=== PATIENT | male | born 1965 | race Caucasian/White ===

== ENCOUNTER 2016-08-01 15:13 | Emergency (ER) | payer BC, OTHER ==
[2016-08-01 15:27] VITALS: BP 142/86
--- NOTE | 2016-08-01 15:39 | EDM.PDOC ---
ED HPI GENERAL MEDICAL PROBLEM - General Chief Complaint: Lower Extremity Injury/Pain Stated Complaint: SOMETHING IN FOOT Time Seen by Provider: 08/01/16 15:38 Source of Information: Reports: Patient History Limitations: Reports: No Limitations - History of Present Illness INITIAL COMMENTS - FREE TEXT/NARRATIVE: HISTORY AND PHYSICAL: History of present illness: [Comes to the emergency room for evaluation of right foot pain. Complains of sensation of foreign body to his lateral mid foot/heel area on the plantar surface of his right foot. He states that several days ago he was walking barefoot in his house when he believes he stepped on a piece of metal. He was evaluated at the urgent care clinic on July 31. A small piece of metal was extracted from his foot at that time. He does not feel that all of the foreign body was removed if he continues to have pain with palpation and with walking. Tetanus is up-to-date. He has not had fever or chills, no nausea vomiting or abdominal pain. No chest pain shortness of breath or difficulty breathing. He has no other complaints or concerns at this time. 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 Past medical history significant for hypertension. Denies history of heart attack stroke and diabetes.] Review of systems: As per history of present illness and below otherwise all systems reviewed and negative. Past medical history: As per history of present illness and as reviewed below otherwise noncontributory. Surgical history: As per history of present illness and as reviewed below otherwise noncontributory. Social history: No reported history of drug or alcohol abuse. Family history: As per history of present illness and as reviewed below otherwise noncontributory. Physical exam: HEENT: Atraumatic, normocephalic. Oral mucous membranes are moist and pink. Extremities: Dime-sized area of swelling, and TTP to R lateral mid foot.purulent discharge is beneath the skin, with a darkened central area. Could be a foreign body or a collection of old blood. Her major foot is unremarkable for other lesions wounds or sores. Neurovascular unremarkable. Sensation is intact. Neuro: Awake, alert, oriented. Motor and sensory unremarkable throughout. Exam nonfocal. Diagnostics: [X-ray right foot] Impression: [foreign body R foot] Plan: [No foreign body is identified on x-ray. Patient would like to have the area excised with exploration for a foreign body. The area is anesthetized with 2 cc of 1% lidocaine without epinephrine. An 11 blade is used to excise the area. Small amount of. The drainage is expressed. No foreign body identified. Will start Cephalexin 500 mg #30 sig one by mouth 3 times a day zero refills recommended Epsom salt soaks 2-3 times daily until resolved. Tylenol or ibuprofen for discomfort of his questions are answered and concerns are addressed.] Definitive disposition and diagnosis as appropriate pending reevaluation and review of above. Right Feet Pain Score (Numeric/FACES): 9 - Related Data Allergies Allergy/AdvReac Type Severity Reaction Status Date / Time No Known Allergies Allergy Verified 08/01/16 15:27 Home Meds: Home Meds Famotidine [Pepcid AC] 20 mg PO BID 08/25/13 [History] Lisinopril 20 mg PO DAILY #30 tablet 08/26/13 [Rx] Hydrochlorothiazide 25 mg PO DAILY 06/22/14 [History] Albuterol Sulfate [Ventolin Hfa] 2 inh INH ASDIRECTED PRN 05/27/15 [History] Budesonide/Formoterol [Symbicort 160-4.5 MCG] 2 puff INH BID 05/27/15 [History] Past Medical History HEENT History: Reports: Impaired Vision Cardiovascular History: Reports: Hypertension Respiratory History: Reports: COPD - Infectious Disease History Infectious Disease History: Reports: Chicken Pox Other Infectious Disease History: Patient unsure of this history - Past Surgical History Musculoskeletal Surgical History: Reports: Shoulder Surgery Other Musculoskeletal Surgeries/Procedures:: right shoulder surgery Social & Family History - Family History Family Medical History: Noncontributory Cardiac: Reports: Hypertension, [place] OBGYN: Reports: Dermatologic: Reports: Psoriasis Oncologic: Reports: Other (See Below) Other Oncologic Family History: esophagus - Tobacco Use Smoking Status *Q: Never Smoker Years of Tobacco use: 15 Packs/Tins Daily: 1 Used Tobacco, but Quit: No Second Hand Smoke Exposure: No - Caffeine Use Caffeine Use: Reports: Soda Caffeine Use Comment: 1drink/day - Alcohol Use Days Per Week of Alcohol Use: 3 Number of Drinks Per Day: 3 Total Drinks Per Week: 9 - Recreational Drug Use Recreational Drug Use: No Review of Systems - Review of Systems Review Of Systems: ROS reveals no pertinent complaints other than HPI. Trauma Exam - Physical Exam Exam: See Below Course - Vital Signs Last Recorded V/S: Last Vital Signs Temp 97 F 08/01/16 15:22 Pulse 110 H 08/01/16 15:22 Resp 20 08/01/16 15:22 BP 142/86 H 08/01/16 15:22 Pulse Ox 95 08/01/16 15:22 - Orders/Labs/Meds Orders: Active Orders 24 hr Category Date Time Status Foot 2V Rt [CR] Stat Exams 08/01/16 16:19 Taken Meds: Medications Discontinued Medications Generic Name Dose Route Start Last Admin Trade Name Дмитрий PRN Reason Stop Dose Admin Lidocaine HCl 20 ml 08/01/16 17:03 08/01/16 17:35 Xylocaine 1% INJECT 08/01/16 17:04 20 ml ONETIME ONE Administration Departure - Departure Time of Disposition: 17:40 Disposition: Home, Self-Care 01 Condition: good Clinical Impression: Foreign body (FB) in soft tissue - Discharge Information Instructions: Sliver Removal, Care After Referrals: Jeet Carter MD [Primary Care Provider] - Forms: ED Department Discharge Additional Instructions: The following information is given to patients seen in the emergency department who are being discharged to home. This information is to outline your options for follow-up care. We provide all patients seen in our emergency department with a follow-up referral. The need for follow-up, as well as the timing and circumstances, are variable depending upon the specifics of your emergency department visit. If you don't have a primary care physician on staff, we will provide you with a referral. We always advise you to contact your personal physician following an emergency department visit to inform them of the circumstance of the visit and for follow-up with them and/or the need for any referrals to a consulting specialist. The emergency department will also refer you to a specialist when appropriate. This referral assures that you have the opportunity for follow-up care with a specialist. All of these measure are taken in an effort to provide you with optimal care, which includes your follow-up. Under all circumstances we always encourage you to contact your private physician who remains a resource for coordinating your care. When calling for follow-up care, please make the office aware that this follow-up is from your recent emergency room visit. If for any reason you are refused follow-up, please contact the [facility] emergency department at and asked to speak to the emergency department charge nurse. [facility] [address] [place] [id number] Followup with her local primary care provider at the clinic listed above in 48- 72 hours. Take antibiotics as prescribed Epsom salts soaks 2-3 times daily. Tylenol or ibuprofen as needed for discomfort. Return to ER as needed as discussed. - My Orders Last 24 Hours: My Active Orders 08/01/16 16:19 Foot 2V Rt [CR] Stat - Assessment/Plan Last 24 Hours: My Active Orders 08/01/16 16:19 Foot 2V Rt [CR] Stat
[2016-08-01] MEDS ORDERED: Lidocaine 1% 20 ML MDV INJECT ONE (17:03)
--- NOTE | 2016-08-02 19:33 | CR ---
EXAM DATE: 08/01/16 PATIENT'S AGE: 51 Patient: ANNA FERRER Facility: [place], [place] Site . Site : 1965 Study: XRay Extremity foot [id number]/11/2017 4:31:25 PM Ordering Physician: Doctor Manzano Final Report: INDICATION: Question foreign body in right mid foot along plantar surface. TECHNIQUE: Foot radiograph 2 views COMPARISON: None FINDINGS: Bones: Alignment is normal. No acute fractures or aggressive osseous lesions seen. Plantar calcaneal spurring. Joint spaces: The visualized hindfoot, midfoot, and forefoot joints are unremarkable in appearance. Soft tissues: Unremarkable. No radiopaque foreign bodies are noted. IMPRESSION: 1. No acute osseous injury. No plantar soft tissue foreign body identified. Dictated by Peter Carrasco MD @ 08/01/2016 4:42:03 PM Dictated by: Peter Carrasco MD @ 08/01/2016 16:42:09 (Electronic Signature) Report Signed by Proxy. DEDRICK
== END 2016-08-01 17:53 | disposition home or self-care (01) ==
LOC: MW.ED 15:13
PROC: 0J9Q0ZZ Drainage of Right Foot Subcutaneous Tissue and Fascia, Open Approach (ICD-10-PCS; principal; 2016-08-01)
DX: M79.5 Residual foreign body in soft tissue (principal); I10 Essential (primary) hypertension; J44.9 Chronic obstructive pulmonary disease, unspecified; F17.200 Nicotine dependence, unspecified, uncomplicated
CPT/HCPCS: 10060; 73620-26-RT; 73620-RT; 99283

== ENCOUNTER 2017-05-24 08:04 | Emergency (ER) | payer BC ==
--- NOTE | 2017-05-24 08:35 | EDM.PDOC ---
ED HPI GENERAL MEDICAL PROBLEM - General Chief Complaint: Lower Extremity Injury/Pain Stated Complaint: RIGHT KNEE PAIN Time Seen by Provider: 05/24/17 08:10 - History of Present Illness INITIAL COMMENTS - FREE TEXT/NARRATIVE: HISTORY AND PHYSICAL: History of present illness: The patient is a 51-year-old male with a history of hypertension who follows in our family practice clinic and presents with a ten-day history of right knee pain. The patient says that he had a slip and fall down 10 concrete stairs 10 days ago and is not sure if he impacted his right knee but he remembers hitting his left knee and twisting and flailing as he was falling. He did not pass out or black out and has no head neck or back pain and initially had some pain at the right knee but it seemed to get better. The patient says 2 days ago he was feeling great and was continuing to work throughout all of this. 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 He has not had any gross swelling or bruising and has no distal or proximal discomfort. He is able to walk but says that it is very uncomfortable and is using a friend's cane. He is taken some ibuprofen this morning but no pain meds yesterday. He has no other systemic complaints. Review of systems: As per history of present illness and below otherwise all systems reviewed and negative. Past medical history: As per history of present illness and as reviewed below otherwise noncontributory. Surgical history: As per history of present illness and as reviewed below otherwise noncontributory. Social history: No reported history of drug or alcohol abuse. Family history: As per history of present illness and as reviewed below otherwise noncontributory. Physical exam: Gen.: Well-developed overweight man who is nontoxic and age-related into the ED using a cane without assistance or difficulty. He has a slight limp. Vital signs are noted by me HEENT: Atraumatic, normocephalic, negative for conjunctival pallor or scleral icterus, mucous membranes moist, throat clear, neck supple, nontender, trachea midline. Lungs: Clear to auscultation, breath sounds equal bilaterally, chest nontender. Heart: S1S2, regular rate and rhythm no overt murmurs Abdomen: Soft, nondistended, nontender. NABS Pelvis: Stable nontender. No lateral hip tenderness on the right Genitourinary: Deferred. Rectal: Deferred. Extremities: Atraumatic appearing with full range of motion of all extremities. At the right knee there is no gross soft tissue swelling and there is a minimal joint effusion appreciated without ecchymosis. There are no palpable bony deformities and there is only mild tenderness to deep palpation just inferior to the mid patella along the track of the quadriceps tendon, there is some discomfort with extension of the leg, there is no distal tib-fib or ankle tenderness or deformities and no proximal thigh or hip tenderness or deformities , the legs are negative for cords or calf pain. Neurovascular unremarkable. Neuro: Awake, alert, oriented. Cranial nerves II through XII unremarkable. Cerebellum unremarkable. Motor and sensory unremarkable throughout. Exam nonfocal. Diagnostics: X-ray right knee Therapeutics: neoprene splint , offer crutches Impression: Right knee injury/pain Definitive disposition and diagnosis as appropriate pending reevaluation and review of above. Right Knee Pain Score (Numeric/FACES): 10 - Related Data Allergies Allergy/AdvReac Type Severity Reaction Status Date / Time No Known Allergies Allergy Verified 05/24/17 08:21 Home Meds: Home Meds Lisinopril 20 mg PO DAILY #30 tablet 08/26/13 [Rx] Hydrochlorothiazide 25 mg PO DAILY 06/22/14 [History] Albuterol Sulfate [Ventolin Hfa] 2 inh INH ASDIRECTED PRN 05/27/15 [History] Budesonide/Formoterol [Symbicort 160-4.5 MCG] 2 puff INH BID 05/27/15 [History] Past Medical History HEENT History: Reports: Impaired Vision Cardiovascular History: Reports: Hypertension Respiratory History: Reports: COPD - Infectious Disease History Infectious Disease History: Reports: Chicken Pox Other Infectious Disease History: Patient unsure of this history - Past Surgical History Musculoskeletal Surgical History: Reports: Shoulder Surgery Other Musculoskeletal Surgeries/Procedures:: right shoulder surgery Social & Family History - Family History Family Medical History: Noncontributory Cardiac: Reports: Hypertension, [place] OBGYN: Reports: Dermatologic: Reports: Psoriasis Oncologic: Reports: Other (See Below) Other Oncologic Family History: esophagus - Tobacco Use Smoking Status *Q: Current Every Day Smoker Years of Tobacco use: 20 Packs/Tins Daily: 1 Used Tobacco, but Quit: No Second Hand Smoke Exposure: No - Caffeine Use Caffeine Use: Reports: None Caffeine Use Comment: 1drink/day - Alcohol Use Days Per Week of Alcohol Use: 3 Number of Drinks Per Day: 3 Total Drinks Per Week: 9 - Recreational Drug Use Recreational Drug Use: No Review of Systems - Review of Systems Review Of Systems: ROS reveals no pertinent complaints other than HPI. ED EXAM, GENERAL - Physical Exam Exam: See Below (See dictation) Course - Vital Signs Last Recorded V/S: Last Vital Signs Temp 36.3 C 05/24/17 08:15 Pulse 103 H 05/24/17 08:15 Resp 18 05/24/17 08:15 BP 118/85 05/24/17 08:15 Pulse Ox 94 L 05/24/17 08:15 - Orders/Labs/Meds Orders: Active Orders 24 hr Category Date Time Status Knee 3V Rt [CR] Stat Exams 05/24/17 08:30 Taken DME for Discharge [COMM] Stat Oth 05/24/17 08:51 Ordered Departure - Departure Time of Disposition: 08:55 Disposition: Home, Self-Care 01 Condition: Good Clinical Impression: Knee injury Qualifiers: Encounter type: initial encounter Laterality: right Qualified Code(s): S89.91XA - Unspecified injury of right lower leg, initial encounter Right knee pain Qualifiers: Chronicity: acute Qualified Code(s): M25.561 - Pain in right knee - Discharge Information Referrals: PCP,None [Primary Care Provider] - Forms: ED Department Discharge Additional Instructions: The following information is given to patients seen in the emergency department who are being discharged to home. This information is to outline your options for follow-up care. We provide all patients seen in our emergency department with a follow-up referral. The need for follow-up, as well as the timing and circumstances, are variable depending upon the specifics of your emergency department visit. If you don't have a primary care physician on staff, we will provide you with a referral. We always advise you to contact your personal physician following an emergency department visit to inform them of the circumstance of the visit and for follow-up with them and/or the need for any referrals to a consulting specialist. The emergency department will also refer you to a specialist when appropriate. This referral assures that you have the opportunity for followup care with a specialist. All of these measure are taken in an effort to provide you with optimal care, which includes your followup. Under all circumstances we always encourage you to contact your private physician who remains a resource for coordinating your care. When calling for followup care, please make the office aware that this follow-up is from your recent emergency room visit. If for any reason you are refused follow-up, please contact the [facility] emergency department at and ask to speak to the emergency department charge nurse. [facility]--Orthopedic clinic Professional Building [address] [place] [id number] Ice and elevate the area as much as possible and continue using over-the- counter ibuprofen. Use knee brace at all times and remove at sleep time. Use crutches or a cane to assist with ambulation. Please use stronger pain medications as prescribed and needed. These call and follow up in orthopedic clinic using the resources given to above to be seen next week and return to ER as needed and as discussed - My Orders Last 24 Hours: My Active Orders 05/24/17 08:30 Knee 3V Rt [CR] Stat 05/24/17 08:51 DME for Discharge [COMM] Stat - Assessment/Plan Last 24 Hours: My Active Orders 05/24/17 08:30 Knee 3V Rt [CR] Stat 05/24/17 08:51 DME for Discharge [COMM] Stat
[2017-05-24 09:12] VITALS: BP 127/84
--- NOTE | 2017-05-26 05:53 | CR ---
EXAM DATE: 05/24/17 PATIENT'S AGE: 51 Patient: ANNA FERRER Facility: [place], [place] Site . Site : 1965 Study: XRay Knee Right [id number]/3/2018 8:48:55 AM Ordering Physician: Katie Shea Final Report: Right knee 3 VIEWS INDICATION: Injury. IMPRESSION: No visualized fracture. Alignments anatomic. Joint spaces unremarkable. Dictated by Jesus Alberto Simon MD @ May 24 2017 8:49AM (Electronic Signature) Report Signed by Proxy. KALEIDA HEALTHEvelin
== END 2017-05-24 09:05 | disposition home or self-care (01) ==
LOC: MW.ED 08:04
DX: S89.91XA Unspecified injury of right lower leg, initial encounter (principal); I10 Essential (primary) hypertension; J44.9 Chronic obstructive pulmonary disease, unspecified; F17.210 Nicotine dependence, cigarettes, uncomplicated; Z79.899 Other long term (current) drug therapy; W10.8XXA Fall (on) (from) other stairs and steps, initial encounter
CPT/HCPCS: 73562-26-RT; 73562-RT; 99283

== ENCOUNTER 2017-07-27 19:31 | Inpatient (IN) | payer BC ==
[2017-07-27] MEDS ORDERED: Ondansetron 4 MG/2 ML SDV IVPUSH ONE (19:45)
[2017-07-27] MEDS ORDERED: Sodium Chloride 0.9% 1,000 ML IV ONE ×2 (19:45→21:09)
[2017-07-27] MEDS ORDERED: Morphine 4 MG/ML Syringe IVPUSH ONE ×2 (19:45→22:09)
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
[2017-07-27 20:31] LABS: CHLORIDE,CL 103 mmol/L (98-107); SODIUM,NA 139 mmol/L (136-148)
[2017-07-27] MEDS ORDERED: Iopamidol 755 MG/ML 200 ML Multipack Bottle IVPUSH ONE (20:58)
[2017-07-27] MEDS ORDERED: Sodium Chloride 0.9% 1,000 ML IV SCH (21:15)
[2017-07-28] MEDS: Sodium Chloride 0.9% 500 ML IV SCH ×2 (00:45→01:55)
--- NOTE | 2017-07-28 01:05 | PCM.SN ---
- Free Text/Narrative Note: pt seen, chart reviewed, hp dictated [id number]
[2017-07-28] MEDS ORDERED: Morphine 4 MG/ML Syringe IVPUSH ONE (01:21)
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
[2017-07-28] MEDS ORDERED: Albuterol 6.7 GM Inhaler INH PRN (04:31)
[2017-07-28] MEDS: Albuterol 8 GM Inhaler INH PRN (05:08)
[2017-07-28] MEDS ORDERED: HYDROmorphone 2 MG Tab PO PRN ×2 (06:38→10:14)
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
[2017-07-28] MEDS ORDERED: HYDROmorphone 2 MG/ML SDV IVPUSH ONE (09:29)
[2017-07-28] MEDS ORDERED: BUDESONIDE INH SCH (09:30)
[2017-07-28] MEDS ORDERED: FORMOTEROL INH SCH (09:30)
[2017-07-28] MEDS ORDERED: Sodium Chloride 0.9% 1,000 ML IV ONE (10:02)
[2017-07-28] MEDS: Fluticasone/Salmeterol 250-50 MCG Inhalation Powder 14/Diskus INH SCH ×2 (10:34→21:00)
[2017-07-28] MEDS: Docusate Sodium 100 MG Cap PO PRN (10:35)
[2017-07-28] MEDS: Bacitracin Oint 28.35 GM Tube TOP SCH ×3 (12:09→22:00)
[2017-07-28] MEDS ORDERED: HYDROmorphone 2 MG/ML SDV IVPUSH PRN (14:00)
[2017-07-28] MEDS: Morphine 4 MG/ML Syringe IVPUSH PRN (14:05)
[2017-07-29] MEDS: oxyCODONE 5 MG Tab PO PRN ×3 (05:31→22:49)
[2017-07-29] MEDS: Bacitracin Oint 28.35 GM Tube TOP SCH ×3 (05:42→22:29)
[2017-07-29 06:44] LABS: CHLORIDE,CL 99 mmol/L (98-107); SODIUM,NA 135 mmol/L (136-148)
[2017-07-29] MEDS: Albuterol 8 GM Inhaler INH PRN ×3 (07:55→19:35)
[2017-07-29] MEDS: Morphine 4 MG/ML Syringe IVPUSH PRN ×2 (07:59→19:25)
[2017-07-29] MEDS: Hydrochlorothiazide 25 MG Tab PO SCH (08:06)
[2017-07-29] MEDS: Lisinopril 10 MG Tab PO SCH (08:06)
[2017-07-29] MEDS: Fluticasone/Salmeterol 250-50 MCG Inhalation Powder 14/Diskus INH SCH ×2 (09:04→20:41)
--- NOTE | 2017-07-29 09:40 | PCM.CONSN ---
- General Info Date of Service: 07/29/17 Admission Dx/Problem (Free Text): Admission Diagnosis/Problem Rib Fractures Subjective Update: No overnight events. Patient still complaining of sob, pleuritic chest pain and neck pain. He is currently on 3.5L O2 via LFNC. Functional Status: Reports: Tolerating Diet, Ambulating, Urinating. Denies: Pain Controlled - Review of Systems General: Reports: No Symptoms HEENT: Reports: No Symptoms Pulmonary: Reports: Shortness of Breath, Pleuritic Chest Pain Cardiovascular: Reports: No Symptoms Gastrointestinal: Reports: No Symptoms Genitourinary: Reports: No Symptoms Musculoskeletal: Reports: Neck Pain Skin: Reports: No Symptoms Neurological: Reports: No Symptoms Psychiatric: Reports: No Symptoms - Patient Data Vitals - Most Recent: Last Vital Signs Temp 36.9 C 07/29/17 04:00 Pulse 88 07/27/17 22:39 Resp 13 07/29/17 07:00 BP 122/76 07/29/17 08:06 Pulse Ox 96 07/29/17 07:00 Weight - Most Recent: 153 kg I&O - Last 24 Hours: Intake & Output 07/28/17 07/29/17 07/29/17 22:59 06:59 14:59 Intake Total 700 Output Total 650 Balance 50 Lab Results Last 24 Hours: Laboratory Results - last 24 hr 07/29/17 Range/Units 05:30 Sodium 135 L (136-148) mmol/L Potassium 4.2 (3.5-5.1) mmol/L Chloride 99 (98-107) mmol/L Carbon Dioxide 30.6 (21.0-32.0) mmol/L BUN 13 (7.0-18.0) mg/dL Creatinine 1.0 (0.8-1.3) mg/dL Est Cr Clr Drug Dosing 101.65 mL/min Estimated GFR (MDRD) > 60.0 ml/min Glucose 121 H (74-106) mg/dL Calcium 9.3 (8.5-10.1) mg/dL Med Orders - Current: Current Medications Albuterol (Ventolin Hfa) 0 gm INH ASDIRECTED PRN PRN Reason: Shortness of Breath Last Admin: 07/29/17 07:55 Dose: 2 puff Bacitracin (Bacitracin Oint) 1 gm TOP TID WANG Last Admin: 07/29/17 05:42 Dose: 1 applic Docusate Sodium (Colace) 100 mg PO DAILY PRN PRN Reason: Constipation Last Admin: 07/28/17 10:35 Dose: 100 mg Hydrochlorothiazide (Hydrochlorothiazide) 25 mg PO DAILY [facility] Last Admin: 07/29/17 08:06 Dose: 25 mg Lisinopril (Prinivil) 20 mg PO DAILY [facility] Last Admin: 07/29/17 08:06 Dose: 20 mg Morphine Sulfate (Morphine) 3 mg IVPUSH Q6H PRN PRN Reason: Pain Last Admin: 07/29/17 07:59 Dose: 3 mg Oxycodone HCl (Oxycodone) 5 mg PO Q8H PRN PRN Reason: Pain Last Admin: 07/29/17 05:31 Dose: 5 mg Fluticasone/Salmeterol (Advair Diskus 250-50) 1 puff INH BID WANG Last Admin: 07/29/17 09:04 Dose: 1 puff Discontinued Medications Albuterol (Proventil Hfa) 0 gm INH ASDIRECTED PRN PRN Reason: Shortness of Breath Hydromorphone HCl (Dilaudid) 2 mg PO Q8H PRN PRN Reason: Pain Last Admin: 07/28/17 06:48 Dose: 2 mg Hydromorphone HCl (Dilaudid) 2 mg IVPUSH ONETIME ONE Stop: 07/28/17 09:30 Last Admin: 07/28/17 09:44 Dose: 2 mg Hydromorphone HCl (Dilaudid) 2 mg IVPUSH Q4H PRN PRN Reason: pain and sob Hydromorphone HCl (Dilaudid) 2 mg PO Q6H PRN PRN Reason: Pain Last Admin: 07/28/17 12:27 Dose: 2 mg Sodium Chloride (Normal Saline) 1,000 mls @ 999 mls/hr IV STAT ONE Stop: 07/27/17 20:45 Last Admin: 07/27/17 19:45 Dose: 999 mls/hr Sodium Chloride (Normal Saline) 1,000 mls @ 1,000 mls/hr IV .Bolus ONE Stop: 07/27/17 22:08 Last Admin: 07/27/17 21:06 Dose: 1,000 mls/hr Sodium Chloride (Normal Saline) 500 mls @ 999 mls/hr IV .BOLUS [facility] Last Admin: 07/28/17 01:55 Dose: 999 mls/hr Sodium Chloride (Normal Saline) 1,000 mls @ 150 mls/hr IV .BOLUS ONE Stop: 07/28/17 16:41 Last Admin: 07/28/17 10:33 Dose: 150 mls/hr Iopamidol (Isovue Multipack-370 (76%)) 95 ml IVPUSH ONETIME ONE Stop: 07/27/17 20:59 Last Admin: 07/27/17 20:58 Dose: 95 ml Morphine Sulfate (Morphine) 4 mg IVPUSH ONETIME ONE Stop: 07/27/17 19:46 Last Admin: 07/27/17 19:54 Dose: 4 mg Morphine Sulfate (Morphine) 4 mg IVPUSH ONETIME ONE Stop: 07/27/17 22:10 Last Admin: 07/27/17 22:15 Dose: 4 mg Morphine Sulfate (Morphine) 1 mg IVPUSH ONETIME ONE Stop: 07/28/17 01:22 Last Admin: 07/28/17 01:28 Dose: 1 mg Ondansetron HCl (Zofran) 4 mg IVPUSH ONETIME ONE Stop: 07/27/17 19:46 Last Admin: 07/27/17 19:54 Dose: 4 mg Budesonide/Formoterol [ Symbicort 160-4.5 Mcg] 2 Puff 0 each INH BID [facility] Last Admin: 07/28/17 09:44 Dose: Not Given - Exam Quality Assessment: Supplemental Oxygen (3.5L O2) General: Alert, Oriented HEENT: Pupils Equal, Pupils Reactive, EOMI, Mucous Membr. Moist/[place] Neck: Supple, Trachea Midline Lungs: Clear to Auscultation, Decreased Breath Sounds. No: Crackles, Rales, Rhonchi, Wheezing Cardiovascular: Regular Rate, Regular Rhythm GI/Abdominal Exam: Normal Bowel Sounds, Soft, Non-Tender Back Exam: Decreased Range of Motion (neck). No: Paraspinal Tenderness, Vertebral Tenderness Extremities: Normal Inspection, Normal Range of Motion, Non-Tender, No Pedal Edema, Normal Capillary Refill Neurological: No New Focal Deficit, Normal Gait, Normal Speech, Normal Tone, Strength Equal Bilateral, Sensation Intact, Cranial Nerves Intact Psy/Mental Status: Alert, Normal Affect, Normal Mood Consult PN Assessment/Plan Procedures: Procedures AIRWAY INHALATION TREATMENT (08/26/13) ASSAY OF TROPONIN QUANT (08/26/13) ASSAY THYROID STIM HORMONE (09/06/13) CHEST X-RAY 1 VIEW FRONTAL (08/26/13) CHEST X-RAY 2VW FRONTAL&LATL (06/22/14) CO/MEMBANE DIFFUSE CAPACITY (09/10/13) COMPLETE CBC AUTOMATED (09/06/13) COMPLETE CBC W/AUTO DIFF WBC (06/22/14) COMPREHEN METABOLIC PANEL (03/29/16) DRAINAGE OF SKIN ABSCESS (08/01/16) ELECTROCARDIOGRAM TRACING (08/26/13) EMERGENCY DEPT VISIT (05/24/17) EMERGENCY DEPT VISIT (06/22/14) EMERGENCY DEPT VISIT (08/26/13) EMERGENCY DEPT VISIT (08/26/13) EVALUATE PT USE OF INHALER (06/22/14) EVALUATION OF WHEEZING (09/10/13) LIPID PANEL (03/29/16) PULM FUNCTION TEST BY GAS (09/10/13) ROUTINE VENIPUNCTURE (03/29/16) X-RAY EXAM OF FOOT (08/01/16) X-RAY EXAM OF KNEE 3 (05/24/17) X-RAY EXAM UNILAT RIBS/CHEST (11/01/14) Problem List Initiated/Reviewed/Updated: Yes My Orders Last 24 Hours: My Active Orders 07/28/17 09:42 RT Post Treatment Assessment [RC] Click to Edit RT Pre-Treatment Assessment [RC] Click to Edit 07/28/17 09:45 Fluticasone/Salmeterol [Advair Diskus 250-50] 1 puff INH BID 07/28/17 12:00 Bacitracin [Bacitracin Oint] 1 gm TOP TID 07/30/17 05:11 BMP [BASIC METABOLIC PANEL,BMP] [CHEM] AM 07/31/17 05:11 BMP [BASIC METABOLIC PANEL,BMP] [CHEM] AM Plan: 52 year old male with history of well-controlled COPD and HTN admitted to surgery for multiple rib fractures. Medicine service consulted for DOMINGA, hypotension and acute hypercapnic respiratory failure. #Acute Hypercapnic Respiratory Failure, presumed secondary to rib fracture, improving #Multiple Rib fractures, 3rd & 6th rib -currently on 3.5L O2, does not take O2 at home Plan: -continue pain control, may use NSAIDs now that DOMINGA resolved -continue supplemental O2 -obtain ambulatory vital -may consider discharge with home O2 if hypoxia persists and no other indication present for hospitalization #DOMINGA, resolved -likely secondary to hypoperfusion -BUN, Cr, GFR WNL #Hypotension, resolved -presumed side effect of morphine -continue Dilaudid for pain control #Hx of COPD, stabe -home meds include Albuterol PRN and Symbicort BID -Symbicort unavailable therefore may switch to Advair BID during hospitalization & continue albuterol inh prn #Hx of HTN -continue home Lisinopril and HCTZ #Neck Pain #Trauma -not visible abnormalities, c-spine tenderness or neurologic deficits -CT head and c-spine already ordered by primary
--- NOTE | 2017-07-29 10:00 | PCM.SURGPN ---
- General Info Date of Service: 07/29/17 Functional Status: Reports: Pain Controlled - Review of Systems General: Reports: No Symptoms Cardiovascular: Reports: No Symptoms Gastrointestinal: Reports: No Symptoms Genitourinary: Reports: No Symptoms (co head ache and neck pain) - Patient Data Vitals - Most Recent: Last Vital Signs Temp 98.4 F 07/29/17 04:00 Pulse 88 07/27/17 22:39 Resp 13 07/29/17 07:00 BP 122/76 07/29/17 08:06 Pulse Ox 96 07/29/17 07:00 Weight - Most Recent: 337 lb 4.916 oz I&O - Last 24 Hours: Intake & Output 07/28/17 07/29/17 07/29/17 22:59 06:59 14:59 Intake Total 700 Output Total 650 Balance 50 Lab Results Last 24 Hrs: Laboratory Results - last 24 hr 07/29/17 Range/Units 05:30 Sodium 135 L (136-148) mmol/L Potassium 4.2 (3.5-5.1) mmol/L Chloride 99 (98-107) mmol/L Carbon Dioxide 30.6 (21.0-32.0) mmol/L BUN 13 (7.0-18.0) mg/dL Creatinine 1.0 (0.8-1.3) mg/dL Est Cr Clr Drug Dosing 101.65 mL/min Estimated GFR (MDRD) > 60.0 ml/min Glucose 121 H (74-106) mg/dL Calcium 9.3 (8.5-10.1) mg/dL Med Orders - Current: Current Medications Albuterol (Ventolin Hfa) 0 gm INH ASDIRECTED PRN PRN Reason: Shortness of Breath Last Admin: 07/29/17 07:55 Dose: 2 puff Bacitracin (Bacitracin Oint) 1 gm TOP TID [facility] Last Admin: 07/29/17 05:42 Dose: 1 applic Docusate Sodium (Colace) 100 mg PO DAILY PRN PRN Reason: Constipation Last Admin: 07/28/17 10:35 Dose: 100 mg Hydrochlorothiazide (Hydrochlorothiazide) 25 mg PO DAILY [facility] Last Admin: 07/29/17 08:06 Dose: 25 mg Lisinopril (Prinivil) 20 mg PO DAILY [facility] Last Admin: 07/29/17 08:06 Dose: 20 mg Morphine Sulfate (Morphine) 3 mg IVPUSH Q6H PRN PRN Reason: Pain Last Admin: 07/29/17 07:59 Dose: 3 mg Oxycodone HCl (Oxycodone) 5 mg PO Q8H PRN PRN Reason: Pain Last Admin: 07/29/17 05:31 Dose: 5 mg Fluticasone/Salmeterol (Advair Diskus 250-50) 1 puff INH BID WANG Last Admin: 07/29/17 09:04 Dose: 1 puff Discontinued Medications Albuterol (Proventil Hfa) 0 gm INH ASDIRECTED PRN PRN Reason: Shortness of Breath Hydromorphone HCl (Dilaudid) 2 mg PO Q8H PRN PRN Reason: Pain Last Admin: 07/28/17 06:48 Dose: 2 mg Hydromorphone HCl (Dilaudid) 2 mg IVPUSH ONETIME ONE Stop: 07/28/17 09:30 Last Admin: 07/28/17 09:44 Dose: 2 mg Hydromorphone HCl (Dilaudid) 2 mg IVPUSH Q4H PRN PRN Reason: pain and sob Hydromorphone HCl (Dilaudid) 2 mg PO Q6H PRN PRN Reason: Pain Last Admin: 07/28/17 12:27 Dose: 2 mg Sodium Chloride (Normal Saline) 1,000 mls @ 999 mls/hr IV STAT ONE Stop: 07/27/17 20:45 Last Admin: 07/27/17 19:45 Dose: 999 mls/hr Sodium Chloride (Normal Saline) 1,000 mls @ 1,000 mls/hr IV .Bolus ONE Stop: 07/27/17 22:08 Last Admin: 07/27/17 21:06 Dose: 1,000 mls/hr Sodium Chloride (Normal Saline) 500 mls @ 999 mls/hr IV .BOLUS WANG Last Admin: 07/28/17 01:55 Dose: 999 mls/hr Sodium Chloride (Normal Saline) 1,000 mls @ 150 mls/hr IV .BOLUS ONE Stop: 07/28/17 16:41 Last Admin: 07/28/17 10:33 Dose: 150 mls/hr Iopamidol (Isovue Multipack-370 (76%)) 95 ml IVPUSH ONETIME ONE Stop: 07/27/17 20:59 Last Admin: 07/27/17 20:58 Dose: 95 ml Morphine Sulfate (Morphine) 4 mg IVPUSH ONETIME ONE Stop: 07/27/17 19:46 Last Admin: 07/27/17 19:54 Dose: 4 mg Morphine Sulfate (Morphine) 4 mg IVPUSH ONETIME ONE Stop: 07/27/17 22:10 Last Admin: 07/27/17 22:15 Dose: 4 mg Morphine Sulfate (Morphine) 1 mg IVPUSH ONETIME ONE Stop: 07/28/17 01:22 Last Admin: 07/28/17 01:28 Dose: 1 mg Ondansetron HCl (Zofran) 4 mg IVPUSH ONETIME ONE Stop: 07/27/17 19:46 Last Admin: 07/27/17 19:54 Dose: 4 mg Budesonide/Formoterol [ Symbicort 160-4.5 Mcg] 2 Puff 0 each INH BID [facility]ANG Last Admin: 07/28/17 09:44 Dose: Not Given - Exam General: Alert, Oriented Neck: Supple (neck, no step off or tenderness; ) Lungs: Normal Respiratory Effort GI/Abdominal Exam: No Distention Extremities: Normal Inspection (neuro exam, no facial asym; motor ue/le 5+/5+) - Problem List Review Problem List Initiated/Reviewed/Updated: Yes - My Orders Last 24 Hours: Active Orders 24 hr Category Date Time Status IS (RT) [RT Incentive Spirometry] [RC] ASDIRECTED Care 07/28/17 10:55 Active RT Post Treatment Assessment [RC] Click to Edit Care 07/28/17 09:42 Active RT Pre-Treatment Assessment [RC] Click to Edit Care 07/28/17 09:42 Active Regular Diet [DIET] Diet 07/28/17 Lunch Active Cervical Spine wo Cont [CT] Routine Exams 07/29/17 08:45 Ordered Head wo Cont [CT] Routine Exams 07/29/17 08:45 Ordered BMP [BASIC METABOLIC PANEL,BMP] [CHEM] AM Lab 07/30/17 05:11 Ordered BMP [BASIC METABOLIC PANEL,BMP] [CHEM] AM Lab 07/31/17 05:11 Ordered Bacitracin [Bacitracin Oint] Med 07/28/17 12:00 Active 1 gm TOP TID Docusate Sodium [Colace] Med 07/28/17 10:15 Active 100 mg PO DAILY PRN Fluticasone/Salmeterol [Advair Diskus 250-50] Med 07/28/17 09:45 Active 1 puff INH BID Hydrochlorothiazide Med 07/29/17 09:00 Active 25 mg PO DAILY Lisinopril [Prinivil] Med 07/29/17 09:00 Active 20 mg PO DAILY Morphine Med 07/28/17 14:15 Active 3 mg IVPUSH Q6H PRN oxyCODONE Med 07/28/17 20:00 Active 5 mg PO Q8H PRN Medication Orders Albuterol (Ventolin Hfa) 0 gm INH ASDIRECTED PRN PRN Reason: Shortness of Breath Last Admin: 07/29/17 07:55 Dose: 2 puff Admin: 07/28/17 05:08 Dose: 2 inhaler Bacitracin (Bacitracin Oint) 1 gm TOP TID [facility] Last Admin: 07/29/17 05:42 Dose: 1 applic Admin: 07/28/17 22:00 Dose: Admin: 07/28/17 13:09 Dose: Admin: 07/28/17 12:09 Dose: 1 applic Docusate Sodium (Colace) 100 mg PO DAILY PRN PRN Reason: Constipation Last Admin: 07/28/17 10:35 Dose: 100 mg Hydrochlorothiazide (Hydrochlorothiazide) 25 mg PO DAILY [facility] Last Admin: 07/29/17 08:06 Dose: 25 mg Lisinopril (Prinivil) 20 mg PO DAILY [facility] Last Admin: 07/29/17 08:06 Dose: 20 mg Morphine Sulfate (Morphine) 3 mg IVPUSH Q6H PRN PRN Reason: Pain Last Admin: 07/29/17 07:59 Dose: 3 mg Admin: 07/28/17 14:05 Dose: 3 mg Oxycodone HCl (Oxycodone) 5 mg PO Q8H PRN PRN Reason: Pain Last Admin: 07/29/17 05:31 Dose: 5 mg Fluticasone/Salmeterol (Advair Diskus 250-50) 1 puff INH BID [facility] Last Admin: 07/29/17 09:04 Dose: 1 puff Admin: 07/28/17 21:00 Dose: Admin: 07/28/17 10:34 Dose: 1 puff - Assessment Assessment (Free Text/Narrative):: doing very well overnight; check ct neck and head, will likely dc home on pain script; thanks for med colleage input - Plan Plan (Free Text/Narrative):: doing very well overnight; check ct neck and head, will likely dc home on pain script; thanks for med colleage input
[2017-07-29] MEDS ORDERED: Morphine 4 MG/ML Syringe IVPUSH ONE (11:13)
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
--- NOTE | 2017-07-29 16:39 | CT ---
EXAMINATION: Non contrast CT head. Coronal and sagittal reformats. HISTORY: Pain FINDINGS: No evidence of intra or extra axial hemorrhage, mass, midline shift, hydrocephalus or edema. No hypoattenuation changes in the major vascular territories to suggest acute infarct. No abnormal intracranial calcifications are detected. No evidence of substantial vascular calcificat ions. Paranasal sinuses and mastoid air cells are well aerated without substantial findings. The orbits an d globes are symmetric. Pituitary fossa appears unremarkable. Calvarium is intact. No evidence of skull fracture. IMPRESSION: No acute intracranial findings.
[2017-07-29] MEDS ORDERED: ALOE VERA TOP PRN (22:14)
[2017-07-29] MEDS ORDERED: TROLAMINE SALICYLATE TOP PRN (22:14)
[2017-07-30] MEDS: Morphine 4 MG/ML Syringe IVPUSH PRN ×2 (02:35→09:33)
[2017-07-30] MEDS: Albuterol 8 GM Inhaler INH PRN ×2 (04:17→12:29)
[2017-07-30] MEDS: Docusate Sodium 100 MG Cap PO PRN (05:29)
[2017-07-30] MEDS: Bacitracin Oint 28.35 GM Tube TOP SCH ×2 (05:29→13:28)
[2017-07-30 06:04] LABS: CHLORIDE,CL 97 mmol/L (98-107); SODIUM,NA 134 mmol/L (136-148)
[2017-07-30] MEDS: oxyCODONE 5 MG Tab PO PRN (07:02)
[2017-07-30] MEDS: Fluticasone/Salmeterol 250-50 MCG Inhalation Powder 14/Diskus INH SCH (08:20)
[2017-07-30] MEDS: Lisinopril 10 MG Tab PO SCH (08:31)
[2017-07-30] MEDS: Hydrochlorothiazide 25 MG Tab PO SCH (08:32)
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
--- NOTE | 2017-07-30 10:24 | CT ---
EXAMINATION: CT cervical spine HISTORY: Neck pain COMPARISON: None TECHNIQUE: Axial CT images obtained through the cervical spine without contrast. Coronal and sagittal reconstructions obtained. FINDINGS: There is reversal of the normal cervical lordosis, likely positional. Vertebral body height s appear maintained. Mild marginal osteophytes are noted. No fracture or acute osseous abnormality. B one mineralization is normal. The lung apices are clear. 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 No cervical lymphadenopathy. IMPRESSION: 1. Mild degenerative changes without acute findings.
[2017-07-30] MEDS ORDERED: oxyCODONE 5 MG Tab PO ONE (13:17)
[2017-07-30 15:27] VITALS: BP 117/77
== END 2017-07-30 16:25 | disposition home or self-care (01) | DRG 135 ==
LOC: MW.ED 19:31 → OBSVTOIN 22:45 → MW.ICU 22:45 → MW.MS 07-29 19:42
PROVIDERS: ADMIT Surgery; ATTEND Surgery
DX: S22.42XA Multiple fractures of ribs, left side, initial encounter for closed fracture (principal); N17.9 Acute kidney failure, unspecified; J96.92 Respiratory failure, unspecified with hypercapnia; E66.01 Morbid (severe) obesity due to excess calories; Z68.39 Body mass index [BMI] 39.0-39.9, adult; S50.812A Abrasion of left forearm, initial encounter; S80.811A Abrasion, right lower leg, initial encounter; S30.810A Abrasion of lower back and pelvis, initial encounter; V86.59XA Driver of other special all-terrain or other off-road motor vehicle injured in nontraffic accident, initial encounter; M54.2 Cervicalgia; R51 Headache; I95.9 Hypotension, unspecified; I10 Essential (primary) hypertension; J44.9 Chronic obstructive pulmonary disease, unspecified; Z79.899 Other long term (current) drug therapy
CPT/HCPCS: 36415; 36600; 70450; 70450-26; 71260; 71260-26; 72125; 72125-26; 74177; 74177-26; 80048; 80053; 82803; 83690; 84484; 85025; 85610; 86850; 86900; 86901; 93005; 94640; 94660; 96361; 96374; 96375; 97110-GP; 97162-GP; 99285-25; A9270-GY; G0480; J1170; J2270; J2405; J7040; Q9967

== ENCOUNTER 2018-06-21 10:08 | Emergency (ER) | payer BC ==
[2018-06-21] MEDS ORDERED: Albuterol/Ipratropium 3.0-0.5 MG/3 ML Neb Soln NEB ONE (10:19)
[2018-06-21] MEDS ORDERED: methylPREDNISolone Sodium Succinate 125 MG/2 ML SDV IM ONE (10:23)
--- NOTE | 2018-06-21 10:23 | EDM.PDOC ---
ED HPI GENERAL MEDICAL PROBLEM - General Chief Complaint: Respiratory Problem Stated Complaint: COUGH Time Seen by Provider: 06/21/18 10:09 Source of Information: Reports: Patient History Limitations: Reports: No Limitations - History of Present Illness INITIAL COMMENTS - FREE TEXT/NARRATIVE: HISTORY AND PHYSICAL: History of present illness: Patient is a 52 year old male who presents to the ED today with concern for cough x 4 days. Patient has a history of COPD and has been out of Symbicort Inhaler. Patient states that about a week or 2 ago he had influenza which is what triggered exacerbation. He states he feels "wheezy" but does not have an inhaler at home. Patient denies hemoptysis. Patient states he's had exacerbations of COPD in the past and this feels the same. Patient does have albuterol at home. Patient denies fever, chills, chest pain. Denies headache. Denies nausea, vomiting, abdominal pain, diarrhea, constipation, or dysuria. Has not noted any blood in urine or stool. Patient has been eating and drinking appropriately. Patient has a history of COPD and hypertension. Review of systems: As per history of present illness and below otherwise all systems reviewed and negative. Past medical history: As per history of present illness and as reviewed below otherwise noncontributory. Surgical history: As per history of present illness and as reviewed below otherwise noncontributory. Social history: See social history for further information Family history: As per history of present illness and as reviewed below otherwise noncontributory. Physical exam: General: Patient is alert, oriented, and in no acute distress. Sitting comfortably on the exam table. HEENT: Atraumatic, normocephalic, pupils equal and reactive bilaterally, negative for conjunctival pallor or scleral icterus, mucous membranes moist, TMs normal bilaterally, throat clear, neck supple, nontender, trachea midline. No drooling or trismus noted. No meningeal signs. No hot potato voice noted. Lungs: Diffuse wheezes throughout all lung portillo to auscultation, breath sounds equal bilaterally, chest nontender. Heart: S1S2, regular rate and rhythm without overt murmur Abdomen: Obese, soft, nondistended, nontender. Negative for masses or hepatosplenomegaly. Negative for costovertebral tenderness. Pelvis: Stable nontender. Genitourinary: Deferred. Rectal: Deferred. Skin: Intact, warm, dry. No lesions or rashes noted. Extremities: Atraumatic, negative for cords or calf pain. Neurovascular unremarkable. Neuro: Awake, alert, oriented. Cranial nerves II through XII unremarkable. Cerebellum unremarkable. Motor and sensory unremarkable throughout. Exam nonfocal. Notes: Patient declines blood work and fluids today. CXR shows infiltrate in left lower lung. Will follow with radiology reading. Will give patient 1 refill of Symbicort until he can follow up with his primary care. Discussed the importance for follow-up with his primary care provider. Supportive care measures were reviewed and discussed. Voices understanding and is agreeable to plan of care. Denies any further questions or concerns at this time. Diagnostics: CXR, CBC, CMP (patient declines blood work but not imaging) Therapeutics: Duoneb, Solumedrol, saline (patient declines Saline) Prescription: Medrol dose pack, Levoquin, Symbicort Impression: Community acquired pneumonia, left lower lung Plan: 1. Take medication and inhaler as prescribed. 2. Follow-up with your primary care provider as discussed. 3. Return to ED as needed and as discussed. Definitive disposition and diagnosis as appropriate pending reevaluation and review of above. - Related Data Allergies Allergy/AdvReac Type Severity Reaction Status Date / Time No Known Allergies Allergy Verified 06/21/18 10:18 Home Meds: Home Meds Lisinopril 20 mg PO DAILY #30 tablet 08/26/13 [Rx] Hydrochlorothiazide 25 mg PO DAILY 06/22/14 [History] Albuterol Sulfate [Ventolin Hfa] 2 inh INH ASDIRECTED PRN 05/27/15 [History] Budesonide/Formoterol [Symbicort 160-4.5 MCG] 2 puff INH BID 05/27/15 [History] Past Medical History HEENT History: Reports: Impaired Vision Cardiovascular History: Reports: Hypertension Respiratory History: Reports: COPD - Infectious Disease History Infectious Disease History: Reports: Chicken Pox Other Infectious Disease History: Patient unsure of this history - Past Surgical History Cardiovascular Surgical History: Reports: None GI Surgical History: Reports: Hernia Repair/Other Other GI Surgeries/Procedures: hernia repair when he was a child Musculoskeletal Surgical History: Reports: Shoulder Surgery Other Musculoskeletal Surgeries/Procedures:: right shoulder surgery Social & Family History - Family History Family Medical History: Noncontributory Cardiac: Reports: Hypertension, [place] OBGYN: Reports: Dermatologic: Reports: Psoriasis Oncologic: Reports: Other (See Below) Other Oncologic Family History: esophagus - Caffeine Use Caffeine Use: Reports: None Caffeine Use Comment: 1drink/day ED ROS GENERAL - Review of Systems Review Of Systems: ROS reveals no pertinent complaints other than HPI. ED EXAM, GENERAL - Physical Exam Exam: See Below (see dictation) Course - Vital Signs Last Recorded V/S: Last Vital Signs Temp 35.8 C 06/21/18 10:16 Pulse 106 H 06/21/18 11:08 Resp 22 H 06/21/18 11:08 BP 100/68 06/21/18 11:08 Pulse Ox 89 L 06/21/18 11:08 - Orders/Labs/Meds Orders: Active Orders 24 hr Category Date Time Status RT Aerosol Therapy [RC] ASDIRECTED Care 06/21/18 10:19 Active COMPREHENSIVE METABOLIC PN,CMP [CHEM] Stat Lab 06/21/18 11:02 Received Sodium Chloride 0.9% [Normal Saline] 1,000 ml Med 06/21/18 10:36 Active IV STAT Medication Orders Sodium Chloride (Normal Saline) 1,000 mls @ 999 mls/hr IV STAT ONE Stop: 06/21/18 11:36 Labs: Laboratory Tests 06/21/18 Range/Units 11:02 WBC 6.22 (4.0-11.0) K/uL RBC 5.21 (4.50-5.90) M/uL Hgb 17.7 H (13.0-17.0) g/dL Hct 50.6 H (38.0-50.0) % MCV 97.1 (80.0-98.0) fL MCH 34.0 H (27.0-32.0) pg MCHC 35.0 (31.0-37.0) g/dL RDW Std Deviation 47.5 (28.0-62.0) fl RDW Coeff of Ming 13 (11.0-15.0) % Plt Count 158 (150-400) K/uL MPV 11.00 (7.40-12.00) fL Neut % (Auto) 58.1 (48.0-80.0) % Lymph % (Auto) 28.8 (16.0-40.0) % Alger % (Auto) 11.4 (0.0-15.0) % Eos % (Auto) 1.4 (0.0-7.0) % Baso % (Auto) 0.3 (0.0-1.5) % Neut # (Auto) 3.6 (1.4-5.7) K/uL Lymph # (Auto) 1.8 (0.6-2.4) K/uL Alger # (Auto) 0.7 (0.0-0.8) K/uL Eos # (Auto) 0.1 (0.0-0.7) K/uL Baso # (Auto) 0.0 (0.0-0.1) K/uL Nucleated RBC % 0.0 /100WBC Nucleated RBCs # 0 K/uL Meds: Medications Generic Name Dose Route Start Last Admin Trade Name Freq PRN Reason Stop Dose Admin Sodium Chloride 1,000 mls @ 999 mls/hr 06/21/18 10:36 Normal Saline IV 06/21/18 11:36 STAT ONE Discontinued Medications Generic Name Dose Route Start Last Admin Trade Name Freq PRN Reason Stop Dose Admin Albuterol/Ipratropium 3 ml 06/21/18 10:19 06/21/18 10:24 Duoneb 3.0-0.5 Mg/3 Ml NEB 06/21/18 10:20 3 ml ONETIME ONE Administration Methylprednisolone Sodium Succinate 125 mg 06/21/18 10:23 06/21/18 10:35 Solu-Medrol IM 06/21/18 10:24 125 mg ONETIME ONE Administration Departure - Departure Time of Disposition: 11:15 Disposition: Home, Self-Care 01 Clinical Impression: Community acquired pneumonia Qualifiers: Laterality: left Lung location: lower lobe of lung Qualified Code(s): J18.1 - Lobar pneumonia, unspecified organism - Discharge Information Instructions: Community-Acquired Pneumonia, Adult, [id number] Referrals: PCP,None [Primary Care Provider] - Forms: ED Department Discharge Additional Instructions: The following information is given to patients seen in the emergency department who are being discharged to home. This information is to outline your options for follow-up care. We provide all patients seen in our emergency department with a follow-up referral. The need for follow-up, as well as the timing and circumstances, are variable depending upon the specifics of your emergency department visit. If you don't have a primary care physician on staff, we will provide you with a referral. We always advise you to contact your personal physician following an emergency department visit to inform them of the circumstance of the visit and for follow-up with them and/or the need for any referrals to a consulting specialist. The emergency department will also refer you to a specialist when appropriate. This referral assures that you have the opportunity for follow-up care with a specialist. All of these measure are taken in an effort to provide you with optimal care, which includes your follow-up. Under all circumstances we always encourage you to contact your private physician who remains a resource for coordinating your care. When calling for follow-up care, please make the office aware that this follow-up is from your recent emergency room visit. If for any reason you are refused follow-up, please contact the [facility] Emergency Department at and asked to speak to the emergency department charge nurse. [facility] [address] [place], [place] [id number] [place] [address] 1. Take medication and inhaler as prescribed. 2. Follow-up with your primary care provider as discussed. 3. Return to ED as needed and as discussed. - My Orders Last 24 Hours: My Active Orders 06/21/18 10:19 RT Aerosol Therapy [RC] ASDIRECTED 06/21/18 10:36 Sodium Chloride 0.9% [Normal Saline] 1,000 ml IV STAT 06/21/18 11:02 COMPREHENSIVE METABOLIC PN,CMP [CHEM] Stat - Assessment/Plan Last 24 Hours: My Active Orders 06/21/18 10:19 RT Aerosol Therapy [RC] ASDIRECTED 06/21/18 10:36 Sodium Chloride 0.9% [Normal Saline] 1,000 ml IV STAT 06/21/18 11:02 COMPREHENSIVE METABOLIC PN,CMP [CHEM] Stat
[2018-06-21] MEDS ORDERED: Sodium Chloride 0.9% 1,000 ML IV ONE (10:36)
--- NOTE | 2018-06-21 11:18 | CR ---
HISTORY: Pain and shortness of breath. COMPARISON: None. FINDINGS: The lungs are clear. Costophrenic angles sharp. Heart size and pulmonary vascularity are within normal limits. Bony thorax intact. Dictated by Catia Esquivel MD @ Jun 21 2018 11:16AM Signed by Dr. Catia Esquivel @ Jun 21 2018 11:16AM
[2018-06-21 11:33] VITALS: BP 97/62
[2018-06-21 11:34] LABS: CHLORIDE,CL 97 mmol/L (98-107); SODIUM,NA 134 mmol/L (136-148)
== END 2018-06-21 11:29 | disposition home or self-care (01) ==
LOC: MW.ED 10:08
DX: J18.1 Lobar pneumonia, unspecified organism (principal); I10 Essential (primary) hypertension; J44.9 Chronic obstructive pulmonary disease, unspecified; Z79.899 Other long term (current) drug therapy
CPT/HCPCS: 36415; 71046; 80053; 85025; 96372; 99284; J2930; J7620-GY

== ENCOUNTER 2019-12-24 16:09 | Emergency (ER) | payer SELFPAY ==
--- NOTE | 2019-12-24 16:28 | EDM.PDOC ---
ED HPI GENERAL MEDICAL PROBLEM - General Chief Complaint: General Stated Complaint: NARCOLEPSY Time Seen by Provider: 12/24/19 16:18 Source of Information: Reports: Patient History Limitations: Reports: No Limitations - History of Present Illness INITIAL COMMENTS - FREE TEXT/NARRATIVE: HISTORY AND PHYSICAL: History of present illness: Patient is a 54-year-old male who presents to the emergency room after falling asleep in the [employer] parking lot. Patient states he has a history of narcolepsy and has been seeing a specialist in [place], has not initiated any form of medication/therapy for this. Today he went to [place] to eat and states he fell asleep. When he woke up EMS was on scene assessing him. He reports he feels otherwise healthy and has no health concerns. Reports he has been having more episodes of "falling asleep" and does plan on seeing his specialist in [place] as it is now affecting him. 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 Upon arrival he is alert, oriented and offers no systemic complaints. Reports seeing his primary care provider yesterday and had "a full work-up". Patient denies any fever, chills, headache, change in vision, syncope or near syncope. Denies any chest pain, back pain, shortness of breath or cough. Denies any abdominal pain, nausea, vomiting, diarrhea, constipation or dysuria. Has not noted any blood in urine or stool. Patient has been eating and drinking appropriately. Review of systems: As per history of present illness and below otherwise all systems reviewed and negative. Past medical history: As per history of present illness and as reviewed below otherwise noncontributory. Surgical history: As per history of present illness and as reviewed below otherwise non contributory. Social history: See social history for further information Family history: As per history of present illness and as reviewed below otherwise noncontributory. Physical exam: General: Well developed and well nourished. Alert and orientated x 3. Nontoxic in appearance and in no acute distress. Vital signs are stable and have been reviewed by me. Nursing notes were reviewed. HEENT: Atraumatic, normocephalic, pupils equal and reactive bilaterally, negative for conjunctival pallor or scleral icterus, mucous membranes moist, TMs normal bilaterally, throat clear, neck supple, nontender, trachea midline. No drooling or trismus noted. No meningeal signs. No hot potato voice noted. Lungs: Clear to auscultation, breath sounds equal bilaterally, chest nontender. Normal work of breathing, no accessory muscles used. Heart: S1S2, regular rate and rhythm without overt murmur Abdomen: Soft, nondistended, nontender. Negative for masses or hepatosplenomegaly. Negative for costovertebral tenderness. Skin: Intact, warm, dry. No lesions or rashes noted. Hematologic: No petechiae or purpra. Mucosa appropriate color and normal nail bed color and refill. Extremities: Atraumatic, moves all extremities per self without difficulty or deficits, negative for cords or calf pain. Neurovascular unremarkable. Neuro: Awake, alert, oriented. Cranial nerves II through XII unremarkable. Cerebellum unremarkable. Motor and sensory unremarkable throughout. Exam nonfocal. Psychiatric: Mood and affect are appropriate. Normal thought process. Answering questions appropriately. 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 "I don't want to hurt anybody, but I have to work and pay my bills". We discussed doing labs and a work-up due to today's visit. He states he was seen yesterday by his PCP and had a full work-up which included labs. He declines wanting any diagnostics. Patients oxygen does get up to 91% on RA. VSS. The patient is stable for discharge, counseling was provided and we discussed in great detail signs and symptoms that would prompt them to return to the Emergency Department. Medication, follow up and supportive care measures were reviewed and discussed. Voices understanding and is agreeable to plan of care. Denies any further questions or concerns at this time. Diagnostics: Declines Therapeutics: Declines Prescription: None Impression: Encounter for medical screening exam Narcolepsy Plan: 1. Today your physical exam is normal. Since you just had a physical exam/wellness exam yesterday, we did not do any diagnostics today. 2. Please see the specialist for your Narcolepsy about further treatment options. You should not be driving while you're having more frequent episodes. 3. We encourage you to follow up with your primary care provider and/or recommended specialist in the next few days for re-evaluation and further care/management. If your symptoms should worsen, new symptoms develop or any of the signs and symptoms we discussed should arise please return to the emergency room or call 911 (if needed). Definitive disposition and diagnosis as appropriate pending reevaluation and review of above. - Related Data Allergies Allergy/AdvReac Type Severity Reaction Status Date / Time No Known Allergies Allergy Verified 06/21/18 10:18 Home Meds: Home Meds Lisinopril 20 mg PO DAILY #30 tablet 08/26/13 [Rx] Hydrochlorothiazide 25 mg PO DAILY 06/22/14 [History] Albuterol Sulfate [Ventolin Hfa] 2 inh INH ASDIRECTED PRN 05/27/15 [History] Budesonide/Formoterol [Symbicort 160-4.5 MCG] 2 puff INH BID 05/27/15 [History] Past Medical History HEENT History: Reports: Impaired Vision Cardiovascular History: Reports: Hypertension Respiratory History: Reports: COPD - Infectious Disease History Infectious Disease History: Reports: Chicken Pox Other Infectious Disease History: Patient unsure of this history - Past Surgical History Cardiovascular Surgical History: Reports: None GI Surgical History: Reports: Hernia Repair/Other Other GI Surgeries/Procedures: hernia repair when he was a child Musculoskeletal Surgical History: Reports: Shoulder Surgery Other Musculoskeletal Surgeries/Procedures:: right shoulder surgery Social & Family History - Family History Family Medical History: Noncontributory Cardiac: Reports: Hypertension, [place] OBGYN: Reports: Dermatologic: Reports: Psoriasis Oncologic: Reports: Other (See Below) Other Oncologic Family History: esophagus - Caffeine Use Caffeine Use: Reports: None Caffeine Use Comment: 1drink/day ED ROS GENERAL - Review of Systems Review Of Systems: Comprehensive ROS is negative, except as noted in HPI. ED EXAM, GENERAL - Physical Exam Exam: See Below (See dictation) Course - Vital Signs Last Recorded V/S: Last Vital Signs Temp 96.9 F 12/24/19 16:19 Pulse 101 H 12/24/19 16:19 Resp 22 H 12/24/19 16:19 BP 131/50 L 12/24/19 16:19 Pulse Ox 84 L 12/24/19 16:19 Departure - Departure Time of Disposition: 16:26 Disposition: Home, Self-Care 01 Clinical Impression: Narcolepsy, Encounter for medical screening examination - Discharge Information Instructions: Narcolepsy Forms: ED Department Discharge Additional Instructions: The following information is given to patients seen in the emergency department who are being discharged to home. This information is to outline your options for follow-up care. We provide all patients seen in our emergency department with a follow-up referral. The need for follow-up, as well as the timing and circumstances, are variable depending upon the specifics of your emergency department visit. If you don't have a primary care physician on staff, we will provide you with a referral. We always advise you to contact your personal physician following an emergency department visit to inform them of the circumstance of the visit and for follow-up with them and/or the need for any referrals to a consulting specialist. The emergency department will also refer you to a specialist when appropriate. This referral assures that you have the opportunity for follow-up care with a specialist. All of these measure are taken in an effort to provide you with optimal care, which includes your follow-up. Under all circumstances we always encourage you to contact your private physician who remains a resource for coordinating your care. When calling for follow-up care, please make the office aware that this follow-up is from your recent emergency room visit. If for any reason you are refused follow-up, please contact the [facility] Emergency Department at and asked to speak to the emergency department charge nurse. [facility] [address] [place] [id number] [address] [id number] Thank you for choosing the [facility] emergency department in [place] for your medical needs today. It was a pleasure caring for you. Today you were seen in the emergency department for narcolepsy. 1. Today your physical exam is normal. Since you just had a physical exam/wellness exam yesterday, we did not do any diagnostics today. 2. Please see the specialist for your Narcolepsy about further treatment options. You should not be driving while you're having more frequent episodes. 3. We encourage you to follow up with your primary care provider and/or recommended specialist in the next few days for re-evaluation and further care/management. If your symptoms should worsen, new symptoms develop or any of the signs and symptoms we discussed should arise please return to the emergency room or call 911 (if needed). Sepsis Event Note (ED) - Focused Exam Vital Signs: Vital Signs Temp Pulse Resp BP Pulse Ox 12/24/19 16:19 96.9 F 101 H 22 H 131/50 L 84 L
[2019-12-24 16:58] VITALS: BP 86/37; PULSE 97
== END 2019-12-24 16:33 | disposition home or self-care (01) ==
LOC: MW.ED 16:09
DX: G47.419 Narcolepsy without cataplexy (principal); I10 Essential (primary) hypertension; J44.9 Chronic obstructive pulmonary disease, unspecified; Z79.899 Other long term (current) drug therapy
CPT/HCPCS: 99282; 99283

== ENCOUNTER 2023-01-20 12:29 | Inpatient (IN) | payer SELFPAY ==
[2023-01-20] MEDS ORDERED: Cefepime 2 GM in Sodium Chloride 0.9% 50 ML IV ONE (12:39)
[2023-01-20] MEDS ORDERED: 50% Dextrose in Water 50 ML Syringe IVPUSH ONE (12:39)
[2023-01-20] MEDS ORDERED: Dextrose 10% in Water 500 ML IV STA (12:40)
[2023-01-20 12:47] LABS: BASOPHILS ABSOLUTE AUTO 0.07 K/uL (0.00-0.20); BASOPHILS PERCENT AUTO 1.2 % (0.0-1.0); EOSINOPHILS ABSOLUTE AUTO 0.04 K/uL (0.00-0.45); EOSINOPHILS PERCENT AUTO 0.7 % (0.0-6.0); HEMATOCRIT 51.9 % (42.0-52.0); IMMATURE GRAN ABSOLUTE AUTO 0.01 K/uL (0.00-0.05); IMMATURE GRAN PERCENT AUTO 0.2 % (0.0-0.4); LYMPHOCYTES ABSOLUTE AUTO 1.84 K/uL (1.00-4.80); LYMPHOCYTES PERCENT AUTO 31.6 % (24.0-44.0); MEAN CORPUSCULAR HEMOGLOBIN 33.3 pg (28.0-32.0); MEAN CORPUSCULAR HGB CONC 34.7 g/dL (32.0-36.0); MEAN CORPUSCULAR VOLUME 96.1 fL (83.0-99.0); MEAN PLATELET VOLUME 9.7 fL (9.4-12.4); MONOCYTES ABSOLUTE AUTO 0.23 K/uL (0.00-0.80); NEUTROPHILS ABSOLUTE AUTO 3.63 K/uL (1.80-7.70); NEUTROPHILS PERCENT AUTO 62.3 % (41.0-71.0); PLATELET COUNT,PLT 150 K/uL (150-400); WHITE BLOOD CELL COUNT,WBC 5.82 K/uL (3.9-11.3)
[2023-01-20] MEDS ORDERED: Pantoprazole 80 MG in Sodium Chloride 0.9% 10 ML IVPUSH ONE (13:01)
[2023-01-20 13:08] LABS: INR 1.07 (0.86-1.11); PTT,PARTIAL THROMBOPLSTIN TIME 25.1 SEC (23.9-30.7)
[2023-01-20] MEDS ORDERED: Sodium Chloride 0.9% 1,000 ML IV ONE ×2 (13:18→18:11)
[2023-01-20] MEDS ORDERED: Lidocaine 1% with EPINEPHrine 1:100,000 20 ML MDV INJECT ONE (13:23)
[2023-01-20 13:33] LABS: A/G RATIO 1.1 (0.9-1.6); ACETAMINOPHEN <2.0 ug/mL; ALANINE AMINOTRANSFERASE,ALT 54 IU/L (14-63); ALBUMIN 4.5 g/dL (3.4-5.0); ALKALINE PHOSPHATASE 122 U/L (46-116); ASPARTATE AMNIOTRANSFERASE,AST 109 IU/L (15-37); BILIRUBIN TOTAL 1.4 mg/dL (0.2-1.0); BLOOD UREA NITROGEN,BUN 33 mg/dL (7.0-18.0); CALCIUM 9.2 mg/dL (8.5-10.1); CARBON DIOXIDE,CO2 24.7 mmol/L (21.0-32.0); CHLORIDE,CL 97 mmol/L (98-107); CREATINE KINASE,CK 193 U/L (26-308); CREATININE 2.3 mg/dL (0.8-1.3); ESTIMATED GFR 33 mL/min (>60); ETHANOL BLOOD MEDICAL 355 mg/dL; GLUCOSE RANDOM 63 mg/dL (74-106); LIPASE 47 U/L (16-77); POTASSIUM,K 4.6 mmol/L (3.5-5.1); PROTEIN TOTAL,TP 8.8 g/dL (6.4-8.2); SALICYLATE 1.5 mg/dL (0.0-20.0); SODIUM,NA 141 mmol/L (136-148); TSH ULTRASENSITIVE 1.81 uIU/mL (0.36-3.74)
[2023-01-20] MEDS ORDERED: LORazepam 2 MG/ML SDV IVPUSH ONE ×2 (14:38→17:43)
[2023-01-20 14:44] LABS: LACTIC ACID 4.8 mmol/L (0.4-2.0)
[2023-01-20] MEDS ORDERED: Sodium Chloride 0.9% 500 ML IV SCH (14:45)
[2023-01-20] MEDS ORDERED: metroNIDAZOLE/Normal Saline 500 MG in Premix Bag 1 BAG IV STA (14:50)
[2023-01-20 14:59] LABS: CORONAVIRUS COVID-19 NAA NEGATIVE (NEGATIVE); INFLUENZA A NAA NEGATIVE (NEGATIVE); INFLUENZA B NAA NEGATIVE (NEGATIVE); RESPIRATORY SYNCYTIAL VIR NAA NEGATIVE (NEGATIVE)
[2023-01-20 15:42] LABS: BASE EXCESS VENOUS -5.4 (-2.0-3.0); PH,VENOUS 7.25 (7.31-7.41)
[2023-01-20] MEDS ORDERED: Albuterol/Ipratropium 3.0-0.5 MG/3 ML Neb Soln NEB PRN (18:21)
[2023-01-20 18:45] LABS: LACTIC ACID 3.9 mmol/L (0.4-2.0)
[2023-01-20] MEDS: LORazepam 2 MG/ML SDV IVPUSH PRN ×2 (19:53→23:57)
[2023-01-20] MEDS: Enoxaparin 40 MG/0.4 ML Syringe SUBCUT SCH (19:59)
[2023-01-20] MEDS ORDERED: Sodium Chloride 0.9% 1,000 ML IV SCH (20:00)
[2023-01-20] MEDS ORDERED: Cefepime 2 GM Vial IVPUSH SCH (20:30)
[2023-01-20] MEDS: Cefepime 2 GM in Sodium Chloride 0.9% 50 ML IV SCH (21:15)
[2023-01-20 21:34] LABS: APPEARANCE,URINE CLEAR; BILIRUBIN,URINE NEGATIVE (NEGATIVE); COLOR,URINE YELLOW; GLUCOSE,URINE NEGATIVE (NEGATIVE); KETONES,URINE 15 mg/dL (NEGATIVE); LEUKOCYTE ESTERASE,URINE TRACE (NEGATIVE); NITRITE,URINE NEGATIVE (NEGATIVE); OCCULT BLOOD,URINE NEGATIVE (NEGATIVE); PH,URINE 5.5 (5.0-8.0); PROTEIN,URINE NEGATIVE (NEGATIVE); UROBILINOGEN,URINE 0.2 EU/dL (<2.0)
[2023-01-20 21:44] LABS: AMPHETAMINES SCREEN, URINE NEGATIVE (CUTOFF=500); BARBITURATE SCREEN,URINE NEGATIVE (CUTOFF=200); BENZODIAZEPINES SCREEN,URINE NEGATIVE (CUTOFF=150); BUPRENORPHINE SCREEN,URINE NEGATIVE (CUTOFF=10); METHADONE SCREEN, URINE NEGATIVE (CUTOFF=200); METHAMPHETAMINES SCREEN, URINE NEGATIVE (CUTOFF=500); OXYCODONE SCREEN,URINE NEGATIVE (CUT0FF=100); PCP SCREEN,URINE NEGATIVE (CUTOFF=25); PROPOXYPHENE SCREEN,URINE NEGATIVE (CUTOFF=300); THC SCREEN,URINE 20 NG/ML NEGATIVE (CUTOFF=50)
[2023-01-20 21:50] LABS: RBC,URINE NONE SEEN (0-2/HPF)
[2023-01-20 21:51] LABS: AMORPHOUS SEDIMENT,URINE LIGHT (NEGATIVE); BACTERIA,URINE FEW (NEGATIVE); EPITHELIAL CELLS,URINE FEW (NONE-FEW)
[2023-01-20] MEDS: metroNIDAZOLE/Normal Saline 500 MG in Premix Bag 1 BAG IV SCH (22:01)
[2023-01-20] MEDS ORDERED: Thiamine 200 MG/2 ML MDV IVPUSH ONE (23:15)
[2023-01-21] MEDS ORDERED: Glucagon,Human Recombinant 1 MG Vial IM PRN (00:01)
[2023-01-21] MEDS ORDERED: 50% Dextrose in Water 50 ML Syringe IVPUSH PRN (00:01)
[2023-01-21] MEDS: Dextrose 5%-0.9% NaCl 1,000 ML IV SCH ×2 (00:16→11:13)
[2023-01-21] MEDS: LORazepam 2 MG/ML SDV IVPUSH PRN ×4 (03:57→21:40)
[2023-01-21] MEDS: metroNIDAZOLE/Normal Saline 500 MG in Premix Bag 1 BAG IV SCH ×3 (06:22→22:58)
[2023-01-21 06:28] LABS: BASOPHILS ABSOLUTE AUTO 0.04 K/uL (0.00-0.20); BASOPHILS PERCENT AUTO 0.9 % (0.0-1.0); EOSINOPHILS ABSOLUTE AUTO 0.06 K/uL (0.00-0.45); EOSINOPHILS PERCENT AUTO 1.4 % (0.0-6.0); HEMATOCRIT 38.4 % (42.0-52.0); HEMOGLOBIN 13.6 g/dL (14.0-18.0); IMMATURE GRAN ABSOLUTE AUTO 0.01 K/uL (0.00-0.05); IMMATURE GRAN PERCENT AUTO 0.2 % (0.0-0.4); LYMPHOCYTES ABSOLUTE AUTO 1.22 K/uL (1.00-4.80); LYMPHOCYTES PERCENT AUTO 27.9 % (24.0-44.0); MEAN CORPUSCULAR HEMOGLOBIN 33.4 pg (28.0-32.0); MEAN CORPUSCULAR HGB CONC 35.4 g/dL (32.0-36.0); MEAN CORPUSCULAR VOLUME 94.3 fL (83.0-99.0); MEAN PLATELET VOLUME 9.4 fL (9.4-12.4); MONOCYTES ABSOLUTE AUTO 0.43 K/uL (0.00-0.80); MONOCYTES PERCENT AUTO 9.8 % (0.0-8.0); NEUTROPHILS ABSOLUTE AUTO 2.61 K/uL (1.80-7.70); NEUTROPHILS PERCENT AUTO 59.8 % (41.0-71.0); PLATELET COUNT,PLT 73 K/uL (150-400); RED BLOOD CELL COUNT 4.07 M/uL (4.52-5.90); WHITE BLOOD CELL COUNT,WBC 4.37 K/uL (3.9-11.3)
[2023-01-21 06:52] LABS: A/G RATIO 0.9 (0.9-1.6); ALBUMIN 3.1 g/dL (3.4-5.0); BILIRUBIN TOTAL 1.4 mg/dL (0.2-1.0); CALCIUM 7.6 mg/dL (8.5-10.1); CARBON DIOXIDE,CO2 27.8 mmol/L (21.0-32.0); CREATININE 1.3 mg/dL (0.8-1.3); EST CRCL DRUG DOSING (CG) 73.77 mL/min; PHOSPHORUS 1.7 mg/dL (2.6-4.7); POTASSIUM,K 3.9 mmol/L (3.5-5.1); PROTEIN TOTAL,TP 6.4 g/dL (6.4-8.2)
[2023-01-21] MEDS ORDERED: Sodium Phosphate 15 mMole/5 ML SDV IV ONE ×2 (07:32→17:17)
[2023-01-21] MEDS ORDERED: Magnesium Sulfate/Water 4 GM in Premix Bag 1 BAG IV ONE (07:34)
[2023-01-21] MEDS: Pantoprazole 40 MG in Sodium Chloride 0.9% 10 ML IVPUSH SCH (07:46)
[2023-01-21] MEDS: Phosphorus #1 250 MG Tab PO SCH ×3 (07:51→17:51)
[2023-01-21] MEDS ORDERED: SODIUM PHOSPHATE IV ONE (08:00)
[2023-01-21] MEDS ORDERED: SODIUM CHLORIDE IV ONE (08:00)
[2023-01-21] MEDS: Cefepime 2 GM in Sodium Chloride 0.9% 50 ML IV SCH ×2 (08:02→20:53)
[2023-01-21] MEDS: Thiamine 200 MG/2 ML MDV IVPUSH SCH (08:05)
[2023-01-21] MEDS: Folic Acid 1 MG Tab PO SCH (08:07)
[2023-01-21 16:47] LABS: MAGNESIUM 1.7 mg/dL (1.8-2.4); PHOSPHORUS 1.6 mg/dL (2.6-4.7)
[2023-01-21] MEDS ORDERED: Magnesium Sulfate/Water 2 GM in Premix Bag 1 BAG IV ONE (16:59)
[2023-01-21] MEDS ORDERED: Sodium Phosphate 30 MMOLE in Sodium Chloride 0.9% 250 ML IV ONE (18:00)
[2023-01-21] MEDS: Enoxaparin 40 MG/0.4 ML Syringe SUBCUT SCH (21:03)
[2023-01-22] MEDS: Phosphorus #1 250 MG Tab PO SCH ×5 (00:02→23:02)
[2023-01-22] MEDS: LORazepam 2 MG/ML SDV IVPUSH PRN ×6 (01:48→23:00)
[2023-01-22 05:35] LABS: BASOPHILS ABSOLUTE AUTO 0.01 K/uL (0.00-0.20); BASOPHILS PERCENT AUTO 0.4 % (0.0-1.0); EOSINOPHILS ABSOLUTE AUTO 0.08 K/uL (0.00-0.45); EOSINOPHILS PERCENT AUTO 2.8 % (0.0-6.0); HEMATOCRIT 37.6 % (42.0-52.0); HEMOGLOBIN 13.1 g/dL (14.0-18.0); IMMATURE GRAN ABSOLUTE AUTO 0.01 K/uL (0.00-0.05); IMMATURE GRAN PERCENT AUTO 0.4 % (0.0-0.4); LYMPHOCYTES ABSOLUTE AUTO 1.01 K/uL (1.00-4.80); LYMPHOCYTES PERCENT AUTO 35.6 % (24.0-44.0); MEAN CORPUSCULAR HEMOGLOBIN 32.9 pg (28.0-32.0); MEAN CORPUSCULAR HGB CONC 34.8 g/dL (32.0-36.0); MEAN CORPUSCULAR VOLUME 94.5 fL (83.0-99.0); MEAN PLATELET VOLUME 9.8 fL (9.4-12.4); MONOCYTES ABSOLUTE AUTO 0.28 K/uL (0.00-0.80); MONOCYTES PERCENT AUTO 9.9 % (0.0-8.0); NEUTROPHILS ABSOLUTE AUTO 1.45 K/uL (1.80-7.70); NEUTROPHILS PERCENT AUTO 50.9 % (41.0-71.0); PLATELET COUNT,PLT 40 K/uL (150-400); RED BLOOD CELL COUNT 3.98 M/uL (4.52-5.90); WHITE BLOOD CELL COUNT,WBC 2.84 K/uL (3.9-11.3)
[2023-01-22 05:57] LABS: BILIRUBIN TOTAL 1.7 mg/dL (0.2-1.0); CALCIUM 7.4 mg/dL (8.5-10.1); CARBON DIOXIDE,CO2 32.4 mmol/L (21.0-32.0); EST CRCL DRUG DOSING (CG) 95.9 mL/min; MAGNESIUM 1.5 mg/dL (1.8-2.4); PHOSPHORUS 2.1 mg/dL (2.6-4.7); POTASSIUM,K 3.1 mmol/L (3.5-5.1); PROTEIN TOTAL,TP 6.1 g/dL (6.4-8.2)
[2023-01-22] MEDS: metroNIDAZOLE/Normal Saline 500 MG in Premix Bag 1 BAG IV SCH ×3 (06:47→22:56)
[2023-01-22] MEDS ORDERED: Sodium Phosphate 15 mMole/5 ML SDV IV ONE ×2 (07:20→17:03)
[2023-01-22] MEDS ORDERED: Magnesium Sulfate/Water 4 GM in Premix Bag 1 BAG IV ONE (07:30)
[2023-01-22] MEDS ORDERED: Potassium Chloride 10% 20 MEQ/15 ML Soln 15 ML UD Cup PO ONE (07:30)
[2023-01-22] MEDS ORDERED: POTASSIUM PHOSPHATES IV ONE (07:45)
[2023-01-22] MEDS ORDERED: [UNRECOGNIZED DRUG - OTHER] IV ONE (07:45)
[2023-01-22] MEDS ORDERED: POTASSIUM CHLORIDE IV ONE (07:45)
[2023-01-22] MEDS ORDERED: MAGNESIUM SULFATE IV ONE (07:45)
[2023-01-22] MEDS ORDERED: Sodium Phosphate 20 MMOLE in Sodium Chloride 0.9% 250 ML IV ONE (07:45)
[2023-01-22] MEDS: Pantoprazole 40 MG in Sodium Chloride 0.9% 10 ML IVPUSH SCH (07:47)
[2023-01-22] MEDS ORDERED: Albuterol 8 GM Inhaler INH PRN (08:30)
[2023-01-22] MEDS: Folic Acid 1 MG Tab PO SCH (09:40)
[2023-01-22] MEDS: Thiamine 200 MG/2 ML MDV IVPUSH SCH (09:40)
[2023-01-22] MEDS: Cefepime 2 GM in Sodium Chloride 0.9% 50 ML IV SCH ×2 (09:40→20:42)
[2023-01-22 16:34] LABS: CALCIUM 7.6 mg/dL (8.5-10.1); CARBON DIOXIDE,CO2 30.9 mmol/L (21.0-32.0); CREATININE 1.1 mg/dL (0.8-1.3); EST CRCL DRUG DOSING (CG) 87.18 mL/min; POTASSIUM,K 3.7 mmol/L (3.5-5.1)
[2023-01-22] MEDS ORDERED: Sodium Phosphate 30 MMOLE in Sodium Chloride 0.9% 250 ML IV ONE (17:15)
[2023-01-22] MEDS: Enoxaparin 40 MG/0.4 ML Syringe SUBCUT SCH (20:46)
[2023-01-23] MEDS ORDERED: Ibuprofen 400 MG Tab PO ONE (02:46)
[2023-01-23] MEDS: LORazepam 2 MG/ML SDV IVPUSH PRN ×3 (03:26→15:35)
[2023-01-23] MEDS: metroNIDAZOLE/Normal Saline 500 MG in Premix Bag 1 BAG IV SCH ×3 (06:19→23:55)
[2023-01-23] MEDS: Phosphorus #1 250 MG Tab PO SCH ×4 (06:20→23:56)
[2023-01-23 06:29] LABS: BASOPHILS ABSOLUTE AUTO 0.01 K/uL (0.00-0.20); BASOPHILS PERCENT AUTO 0.3 % (0.0-1.0); EOSINOPHILS ABSOLUTE AUTO 0.16 K/uL (0.00-0.45); EOSINOPHILS PERCENT AUTO 4.2 % (0.0-6.0); HEMATOCRIT 37.6 % (42.0-52.0); IMMATURE GRAN ABSOLUTE AUTO 0.01 K/uL (0.00-0.05); IMMATURE GRAN PERCENT AUTO 0.3 % (0.0-0.4); LYMPHOCYTES ABSOLUTE AUTO 0.98 K/uL (1.00-4.80); LYMPHOCYTES PERCENT AUTO 25.8 % (24.0-44.0); MEAN CORPUSCULAR HEMOGLOBIN 33.2 pg (28.0-32.0); MEAN CORPUSCULAR HGB CONC 34.6 g/dL (32.0-36.0); MEAN CORPUSCULAR VOLUME 96.2 fL (83.0-99.0); MEAN PLATELET VOLUME 10.9 fL (9.4-12.4); MONOCYTES ABSOLUTE AUTO 0.25 K/uL (0.00-0.80); MONOCYTES PERCENT AUTO 6.6 % (0.0-8.0); NEUTROPHILS ABSOLUTE AUTO 2.39 K/uL (1.80-7.70); NEUTROPHILS PERCENT AUTO 62.8 % (41.0-71.0); RED BLOOD CELL COUNT 3.91 M/uL (4.52-5.90)
[2023-01-23] MEDS: Pantoprazole 40 MG in Sodium Chloride 0.9% 10 ML IVPUSH SCH (06:30)
[2023-01-23 06:46] LABS: PLATELET COUNT,PLT 69 K/uL (150-400)
[2023-01-23 06:51] LABS: A/G RATIO 0.9 (0.9-1.6); BILIRUBIN TOTAL 1.3 mg/dL (0.2-1.0); CALCIUM 7.6 mg/dL (8.5-10.1); CARBON DIOXIDE,CO2 30.3 mmol/L (21.0-32.0); EST CRCL DRUG DOSING (CG) 95.9 mL/min; MAGNESIUM 1.6 mg/dL (1.8-2.4); PHOSPHORUS 2.3 mg/dL (2.6-4.7); POTASSIUM,K 3.7 mmol/L (3.5-5.1); PROTEIN TOTAL,TP 6.4 g/dL (6.4-8.2)
[2023-01-23] MEDS ORDERED: Sodium Phosphate 15 mMole/5 ML SDV IV ONE (07:35)
[2023-01-23] MEDS ORDERED: Magnesium Sulfate/Water 2 GM in Premix Bag 1 BAG IV ONE (08:15)
[2023-01-23] MEDS ORDERED: Sodium Phosphate 30 MMOLE in Sodium Chloride 0.9% 250 ML IV ONE (08:15)
[2023-01-23] MEDS: Folic Acid 1 MG Tab PO SCH (08:23)
[2023-01-23] MEDS: Cefepime 2 GM in Sodium Chloride 0.9% 50 ML IV SCH (08:29)
[2023-01-23] MEDS: Thiamine 200 MG/2 ML MDV IVPUSH SCH (08:32)
[2023-01-23 17:11] LABS: CARBON DIOXIDE,CO2 29.9 mmol/L (21.0-32.0); EST CRCL DRUG DOSING (CG) 95.9 mL/min; MAGNESIUM 1.6 mg/dL (1.8-2.4); PHOSPHORUS 2.6 mg/dL (2.6-4.7); POTASSIUM,K 4.2 mmol/L (3.5-5.1)
[2023-01-23] MEDS ORDERED: Magnesium Sulfate/Water 4 GM in Premix Bag 1 BAG IV ONE (18:00)
[2023-01-23] MEDS: Topiramate 50 MG Tab PO SCH ×2 (18:11→20:22)
[2023-01-23] MEDS: Cholecalciferol (Vitamin D3) 25 MCG Tab PO SCH (19:17)
[2023-01-23] MEDS: Enoxaparin 40 MG/0.4 ML Syringe SUBCUT SCH (20:28)
[2023-01-23] MEDS ORDERED: fluvoxaMINE 50 MG Tab PO SCH (21:00)
[2023-01-23] MEDS ORDERED: cefTRIAXone 1 GM in Sodium Chloride 0.9% 50 ML IV SCH (21:00)
[2023-01-24] MEDS ORDERED: Acetaminophen 325 MG Tab PO PRN (00:19)
[2023-01-24] MEDS: Phosphorus #1 250 MG Tab PO SCH ×2 (05:55→11:45)
[2023-01-24] MEDS: Pantoprazole 40 MG in Sodium Chloride 0.9% 10 ML IVPUSH SCH ×2 (05:56→06:35)
[2023-01-24] MEDS: metroNIDAZOLE/Normal Saline 500 MG in Premix Bag 1 BAG IV SCH ×3 (05:56→15:37)
[2023-01-24 06:22] LABS: BASOPHILS ABSOLUTE AUTO 0.02 K/uL (0.00-0.20); BASOPHILS PERCENT AUTO 0.5 % (0.0-1.0); EOSINOPHILS ABSOLUTE AUTO 0.16 K/uL (0.00-0.45); EOSINOPHILS PERCENT AUTO 4.2 % (0.0-6.0); HEMATOCRIT 36.8 % (42.0-52.0); HEMOGLOBIN 12.7 g/dL (14.0-18.0); IMMATURE GRAN ABSOLUTE AUTO 0.02 K/uL (0.00-0.05); IMMATURE GRAN PERCENT AUTO 0.5 % (0.0-0.4); LYMPHOCYTES ABSOLUTE AUTO 0.78 K/uL (1.00-4.80); LYMPHOCYTES PERCENT AUTO 20.6 % (24.0-44.0); MEAN CORPUSCULAR HEMOGLOBIN 33.4 pg (28.0-32.0); MEAN CORPUSCULAR HGB CONC 34.5 g/dL (32.0-36.0); MEAN CORPUSCULAR VOLUME 96.8 fL (83.0-99.0); MONOCYTES ABSOLUTE AUTO 0.35 K/uL (0.00-0.80); MONOCYTES PERCENT AUTO 9.2 % (0.0-8.0); NEUTROPHILS ABSOLUTE AUTO 2.46 K/uL (1.80-7.70); WHITE BLOOD CELL COUNT,WBC 3.79 K/uL (3.9-11.3)
[2023-01-24 06:44] LABS: A/G RATIO 0.8 (0.9-1.6); ALBUMIN 2.9 g/dL (3.4-5.0); BILIRUBIN TOTAL 1.1 mg/dL (0.2-1.0); CALCIUM 8.1 mg/dL (8.5-10.1); CARBON DIOXIDE,CO2 26.5 mmol/L (21.0-32.0); CREATININE 0.7 mg/dL (0.8-1.3); MAGNESIUM 1.9 mg/dL (1.8-2.4); PHOSPHORUS 2.1 mg/dL (2.6-4.7); PLATELET COUNT,PLT 48 K/uL (150-400); PROTEIN TOTAL,TP 6.4 g/dL (6.4-8.2)
[2023-01-24] MEDS: Topiramate 50 MG Tab PO SCH (08:04)
[2023-01-24] MEDS: Cholecalciferol (Vitamin D3) 25 MCG Tab PO SCH (08:06)
[2023-01-24] MEDS: Folic Acid 1 MG Tab PO SCH (08:08)
[2023-01-24] MEDS ORDERED: Thiamine 100 MG Tab PO SCH (09:00)
[2023-01-24 15:44] VITALS: BP 147/99; PULSE 86
[2023-01-25] MEDS ORDERED: Pantoprazole 40 MG Tab.CR PO SCH (09:00)
== END 2023-01-24 17:00 | disposition home or self-care (01) | DRG 897 ==
LOC: MW.ED 12:29 → MW.ICU 18:12 → MW.MS 01-23 12:41 → MW.ICU 01-23 14:18 → MW.MS 01-23 14:18
PROVIDERS: ADMIT Internal Medicine; ATTEND Internal Medicine
DX: F10.239 Alcohol dependence with withdrawal, unspecified (principal); N17.9 Acute kidney failure, unspecified; E87.20 Acidosis, unspecified; F10.229 Alcohol dependence with intoxication, unspecified; I95.9 Hypotension, unspecified; J44.9 Chronic obstructive pulmonary disease, unspecified; G40.909 Epilepsy, unspecified, not intractable, without status epilepticus; E16.2 Hypoglycemia, unspecified; E87.6 Hypokalemia; F29 Unspecified psychosis not due to a substance or known physiological condition; D69.6 Thrombocytopenia, unspecified; E83.42 Hypomagnesemia; I10 Essential (primary) hypertension; K52.9 Noninfective gastroenteritis and colitis, unspecified; E86.0 Dehydration; Z79.899 Other long term (current) drug therapy; Z98.890 Other specified postprocedural states; Z82.49 Family history of ischemic heart disease and other diseases of the circulatory system
CPT/HCPCS: 0241U; 36415; 36556; 70450; 70450-26; 71045; 71045-26; 71250; 71250-26; 72125; 72125-26; 74176; 74176-26; 80048; 80053; 80143; 80179; 80305-QW; 80307; 81001; 82550; 82803; 82947; 83605; 83690; 83735; 84100; 84295; 84443; 84484; 84550; 85025; 85610; 85730; 86850; 86900; 86901; 87040; 87045; 87046; 87086; 87449; 87899; 93005; 93010; 96361; 96365; 96367; 96375; 96376; 97161-GP; 99285; 99285-25; A9270-GY; C9113; J0692; J0696; J1650; J2060; J3411; J3475; J3490; J7030; J7040; J7042; J7050; J7620-GY

== ENCOUNTER 2023-02-14 09:22 | Inpatient (IN) | payer SELFPAY ==
[2023-02-14] MEDS ORDERED: LORazepam 2 MG/ML SDV IVPUSH ONE ×3 (09:24→14:31)
[2023-02-14] MEDS ORDERED: Sodium Chloride 0.9% 1,000 ML IV ONE ×2 (09:24→10:24)
[2023-02-14] MEDS ORDERED: Multivitamin Tab PO STA (09:29)
[2023-02-14] MEDS ORDERED: Folic Acid 1 MG/0.2 ML UD Syringe IV STA (09:29)
[2023-02-14] MEDS ORDERED: Thiamine 200 MG/2 ML MDV IVPUSH ONE (09:29)
[2023-02-14] MEDS ORDERED: Ondansetron 4 MG/2 ML SDV IVPUSH ONE (09:30)
[2023-02-14 09:37] LABS: EOSINOPHILS ABSOLUTE AUTO 0.14 K/uL (0.00-0.45); EOSINOPHILS PERCENT AUTO 1.5 % (0.0-6.0); HEMATOCRIT 49.5 % (42.0-52.0); HEMOGLOBIN 17.4 g/dL (14.0-18.0); IMMATURE GRAN ABSOLUTE AUTO 0.02 K/uL (0.00-0.05); IMMATURE GRAN PERCENT AUTO 0.2 % (0.0-0.4); LYMPHOCYTES ABSOLUTE AUTO 2.26 K/uL (1.00-4.80); LYMPHOCYTES PERCENT AUTO 23.7 % (24.0-44.0); MEAN CORPUSCULAR HGB CONC 35.2 g/dL (32.0-36.0); MEAN CORPUSCULAR VOLUME 93.8 fL (83.0-99.0); MEAN PLATELET VOLUME 9.8 fL (9.4-12.4); MONOCYTES ABSOLUTE AUTO 0.55 K/uL (0.00-0.80); MONOCYTES PERCENT AUTO 5.8 % (0.0-8.0); NEUTROPHILS ABSOLUTE AUTO 6.47 K/uL (1.80-7.70); NEUTROPHILS PERCENT AUTO 67.8 % (41.0-71.0); PLATELET COUNT,PLT 201 K/uL (150-400); RED BLOOD CELL COUNT 5.28 M/uL (4.52-5.90); WHITE BLOOD CELL COUNT,WBC 9.54 K/uL (3.9-11.3)
[2023-02-14 09:48] LABS: INR 1.12 (0.86-1.11); PTT,PARTIAL THROMBOPLSTIN TIME 29.6 SEC (23.9-30.7)
[2023-02-14 10:06] LABS: BILIRUBIN TOTAL 0.7 mg/dL (0.2-1.0); CALCIUM 9.6 mg/dL (8.5-10.1); CARBON DIOXIDE,CO2 26.2 mmol/L (21.0-32.0); EST CRCL DRUG DOSING (CG) 93.22 mL/min; MAGNESIUM 1.2 mg/dL (1.8-2.4); POTASSIUM,K 4.2 mmol/L (3.5-5.1); PROTEIN TOTAL,TP 8.1 g/dL (6.4-8.2)
[2023-02-14] MEDS ORDERED: Magnesium Sulfate/Water 2 GM in Premix Bag 1 BAG IV ONE (10:11)
[2023-02-14 15:06] LABS: AMPHETAMINES SCREEN, URINE NEGATIVE (CUTOFF=500); BARBITURATE SCREEN,URINE NEGATIVE (CUTOFF=200); BENZODIAZEPINES SCREEN,URINE PRESUMPTIVE POSITIVE (CUTOFF=150); BUPRENORPHINE SCREEN,URINE NEGATIVE (CUTOFF=10); METHADONE SCREEN, URINE NEGATIVE (CUTOFF=200); METHAMPHETAMINES SCREEN, URINE NEGATIVE (CUTOFF=500); OXYCODONE SCREEN,URINE NEGATIVE (CUT0FF=100); PCP SCREEN,URINE NEGATIVE (CUTOFF=25); THC SCREEN,URINE 20 NG/ML NEGATIVE (CUTOFF=50)
[2023-02-14] MEDS ORDERED: Ondansetron 4 MG/2 ML SDV IVPUSH PRN (15:54)
[2023-02-14] MEDS ORDERED: Acetaminophen 325 MG Tab PO PRN (15:54)
[2023-02-14] MEDS ORDERED: Polyethylene Glycol 3350 Powder 17 GM Packet PO PRN (15:54)
[2023-02-14] MEDS ORDERED: Enoxaparin 40 MG/0.4 ML Syringe SUBCUT SCH (16:00)
[2023-02-14] MEDS ORDERED: Thiamine 200 MG/2 ML MDV IVPUSH SCH (16:30)
[2023-02-14] MEDS: Albuterol/Ipratropium 3.0-0.5 MG/3 ML Neb Soln NEB PRN (18:33)
[2023-02-14] MEDS: LORazepam 2 MG/ML SDV IVPUSH PRN (18:33)
[2023-02-14] MEDS: Sodium Chloride 0.9% 1,000 ML IV SCH ×2 (18:35→23:33)
[2023-02-14] MEDS: Pantoprazole 40 MG in Sodium Chloride 0.9% 10 ML IVPUSH SCH (18:41)
[2023-02-15] MEDS ORDERED: Ketorolac 30 MG/ML SDV IVPUSH ONE (05:00)
[2023-02-15] MEDS ORDERED: Lidocaine 4% 1 each Patch TOP ONE (05:06)
[2023-02-15 06:27] LABS: BASOPHILS ABSOLUTE AUTO 0.04 K/uL (0.00-0.20); BASOPHILS PERCENT AUTO 0.9 % (0.0-1.0); EOSINOPHILS ABSOLUTE AUTO 0.16 K/uL (0.00-0.45); EOSINOPHILS PERCENT AUTO 3.8 % (0.0-6.0); HEMATOCRIT 42.3 % (42.0-52.0); HEMOGLOBIN 14.3 g/dL (14.0-18.0); IMMATURE GRAN ABSOLUTE AUTO 0.01 K/uL (0.00-0.05); IMMATURE GRAN PERCENT AUTO 0.2 % (0.0-0.4); LYMPHOCYTES ABSOLUTE AUTO 1.34 K/uL (1.00-4.80); LYMPHOCYTES PERCENT AUTO 31.7 % (24.0-44.0); MEAN CORPUSCULAR HEMOGLOBIN 32.4 pg (28.0-32.0); MEAN CORPUSCULAR HGB CONC 33.8 g/dL (32.0-36.0); MEAN CORPUSCULAR VOLUME 95.9 fL (83.0-99.0); MEAN PLATELET VOLUME 10.4 fL (9.4-12.4); MONOCYTES ABSOLUTE AUTO 0.57 K/uL (0.00-0.80); MONOCYTES PERCENT AUTO 13.5 % (0.0-8.0); NEUTROPHILS ABSOLUTE AUTO 2.11 K/uL (1.80-7.70); NEUTROPHILS PERCENT AUTO 49.9 % (41.0-71.0); RED BLOOD CELL COUNT 4.41 M/uL (4.52-5.90); WHITE BLOOD CELL COUNT,WBC 4.23 K/uL (3.9-11.3)
[2023-02-15 06:55] LABS: A/G RATIO 0.9 (0.9-1.6); ALBUMIN 3.3 g/dL (3.4-5.0); BILIRUBIN TOTAL 1.2 mg/dL (0.2-1.0); CALCIUM 8.7 mg/dL (8.5-10.1); CARBON DIOXIDE,CO2 30.5 mmol/L (21.0-32.0); CREATININE 0.8 mg/dL (0.8-1.3); EST CRCL DRUG DOSING (CG) 116.52 mL/min; MAGNESIUM 1.7 mg/dL (1.8-2.4); POTASSIUM,K 3.9 mmol/L (3.5-5.1)
[2023-02-15 07:13] LABS: PLATELET COUNT,PLT 92 K/uL (150-400)
[2023-02-15] MEDS: Sodium Chloride 0.9% 1,000 ML IV SCH ×2 (07:40→15:52)
[2023-02-15] MEDS ORDERED: Pneumococcal Polyvalent-23 Vaccine 0.5 ML SDV IM ONE (07:46)
[2023-02-15] MEDS ORDERED: FLU (Flulaval Quad) 2023-24(6MOS UP)/PF 60 MCG/0.5 ML Syringe IM ONE (08:00)
[2023-02-15] MEDS: Lisinopril 10 MG Tab PO SCH (08:28)
[2023-02-15] MEDS: Nicotine 21 MG/24 Hr Patch TRDERM SCH ×2 (08:28→11:39)
[2023-02-15] MEDS: Hydrochlorothiazide 25 MG Tab PO SCH (08:28)
[2023-02-15] MEDS ORDERED: Thiamine 100 MG in Sodium Chloride 0.9% 100 ML IV SCH (09:00)
[2023-02-15] MEDS ORDERED: Thiamine 200 MG/2 ML MDV IVPUSH SCH (09:00)
[2023-02-15] MEDS ORDERED: Folic Acid 1 MG/0.2 ML UD Syringe IV SCH ×2 (09:00→21:00)
[2023-02-15] MEDS ORDERED: Magnesium Sulfate (4.06 MEQ/ML) 5 GM/10 ML SDV IV ONE (11:31)
[2023-02-15] MEDS: FORMOTEROL INH SCH ×2 (11:39→20:44)
[2023-02-15] MEDS: BUDESONIDE INH SCH ×2 (11:39→20:44)
[2023-02-15] MEDS ORDERED: Magnesium Sulfate/Water 4 GM in Premix Bag 1 BAG IV ONE (11:45)
[2023-02-15] MEDS: Pantoprazole 40 MG in Sodium Chloride 0.9% 10 ML IVPUSH SCH (15:55)
[2023-02-15] MEDS: LORazepam 2 MG/ML SDV IVPUSH PRN (16:05)
[2023-02-15] MEDS: Diazepam 5 MG Tab PO SCH (20:33)
[2023-02-15] MEDS: Ketorolac 30 MG/ML SDV IVPUSH PRN (20:36)
[2023-02-15] MEDS: Heparin Sodium 5,000 Units/ML Vial SUBCUT SCH (20:42)
[2023-02-15] MEDS ORDERED: Thiamine 100 MG Tab PO SCH (21:00)
[2023-02-16] MEDS: Albuterol/Ipratropium 3.0-0.5 MG/3 ML Neb Soln NEB PRN (05:32)
[2023-02-16 06:10] LABS: BASOPHILS ABSOLUTE AUTO 0.03 K/uL (0.00-0.20); BASOPHILS PERCENT AUTO 0.7 % (0.0-1.0); EOSINOPHILS ABSOLUTE AUTO 0.21 K/uL (0.00-0.45); EOSINOPHILS PERCENT AUTO 5.2 % (0.0-6.0); HEMATOCRIT 39.7 % (42.0-52.0); HEMOGLOBIN 13.9 g/dL (14.0-18.0); IMMATURE GRAN ABSOLUTE AUTO 0.01 K/uL (0.00-0.05); IMMATURE GRAN PERCENT AUTO 0.2 % (0.0-0.4); LYMPHOCYTES ABSOLUTE AUTO 1.44 K/uL (1.00-4.80); LYMPHOCYTES PERCENT AUTO 35.8 % (24.0-44.0); MEAN CORPUSCULAR HEMOGLOBIN 33.3 pg (28.0-32.0); MEAN PLATELET VOLUME 10.4 fL (9.4-12.4); MONOCYTES PERCENT AUTO 7.5 % (0.0-8.0); NEUTROPHILS ABSOLUTE AUTO 2.03 K/uL (1.80-7.70); NEUTROPHILS PERCENT AUTO 50.6 % (41.0-71.0); PLATELET COUNT,PLT 73 K/uL (150-400); RED BLOOD CELL COUNT 4.18 M/uL (4.52-5.90); WHITE BLOOD CELL COUNT,WBC 4.02 K/uL (3.9-11.3)
[2023-02-16] MEDS: Ketorolac 30 MG/ML SDV IVPUSH PRN (06:18)
[2023-02-16 06:37] LABS: A/G RATIO 0.9 (0.9-1.6); ALBUMIN 3.3 g/dL (3.4-5.0); BILIRUBIN TOTAL 0.8 mg/dL (0.2-1.0); CARBON DIOXIDE,CO2 28.6 mmol/L (21.0-32.0); EST CRCL DRUG DOSING (CG) 93.22 mL/min; MAGNESIUM 1.9 mg/dL (1.8-2.4); PROTEIN TOTAL,TP 6.8 g/dL (6.4-8.2)
[2023-02-16] MEDS: Hydrochlorothiazide 25 MG Tab PO SCH (08:44)
[2023-02-16] MEDS: Lisinopril 10 MG Tab PO SCH (08:44)
[2023-02-16] MEDS: Heparin Sodium 5,000 Units/ML Vial SUBCUT SCH (08:44)
[2023-02-16] MEDS: Diazepam 5 MG Tab PO SCH (08:44)
[2023-02-16] MEDS: Nicotine 21 MG/24 Hr Patch TRDERM SCH (08:45)
[2023-02-16] MEDS: FORMOTEROL INH SCH (08:49)
[2023-02-16] MEDS: BUDESONIDE INH SCH (08:49)
[2023-02-16] MEDS: Pantoprazole 40 MG in Sodium Chloride 0.9% 10 ML IVPUSH SCH (15:29)
[2023-02-16 15:48] VITALS: BP 135/79; PULSE 86
== END 2023-02-16 15:55 | disposition home or self-care (01) | DRG 897 ==
LOC: MW.ED 09:22 → MW.ICU 15:09 → MW.MS 02-16 12:59
PROVIDERS: ADMIT Family Medicine; ATTEND Family Medicine
DX: F10.139 Alcohol abuse with withdrawal, unspecified (principal); J44.9 Chronic obstructive pulmonary disease, unspecified; I10 Essential (primary) hypertension; Y90.5 Blood alcohol level of 100-119 mg/100 ml; E87.6 Hypokalemia; R07.81 Pleurodynia; G47.429 Narcolepsy in conditions classified elsewhere without cataplexy; W19.XXXA Unspecified fall, initial encounter; Z79.899 Other long term (current) drug therapy; Z88.8 Allergy status to other drugs, medicaments and biological substances; Z98.890 Other specified postprocedural states; Z82.49 Family history of ischemic heart disease and other diseases of the circulatory system
CPT/HCPCS: 36415; 70450; 70450-26; 71250; 71250-26; 72125; 72125-26; 80053; 80305-QW; 80307; 82009; 83735; 84484; 85025; 85610; 85730; 90686; 90732; 93005; 93010; 96361; 96365; 96375; 96376; 99222; 99232; 99239; 99285-25; 99291; A9270-GY; C9113; G0008; G0009; J1644; J1650; J1885; J2060; J2405; J3360; J3411; J3475; J3490; J7030; J7620-GY

== ENCOUNTER 2023-03-11 17:52 | Emergency (ER) | payer SELFPAY ==
[2023-03-11] MEDS ORDERED: Sodium Chloride 0.9% 1,000 ML IV ONE (18:21)
[2023-03-11 18:22] LABS: BASOPHILS ABSOLUTE AUTO 0.07 K/uL (0.00-0.20); BASOPHILS PERCENT AUTO 0.8 % (0.0-1.0); EOSINOPHILS ABSOLUTE AUTO 0.06 K/uL (0.00-0.45); EOSINOPHILS PERCENT AUTO 0.7 % (0.0-6.0); HEMATOCRIT 49.6 % (42.0-52.0); HEMOGLOBIN 17.7 g/dL (14.0-18.0); IMMATURE GRAN ABSOLUTE AUTO 0.04 K/uL (0.00-0.05); IMMATURE GRAN PERCENT AUTO 0.4 % (0.0-0.4); LYMPHOCYTES ABSOLUTE AUTO 3.49 K/uL (1.00-4.80); LYMPHOCYTES PERCENT AUTO 38.5 % (24.0-44.0); MEAN CORPUSCULAR HEMOGLOBIN 33.4 pg (28.0-32.0); MEAN CORPUSCULAR HGB CONC 35.7 g/dL (32.0-36.0); MEAN CORPUSCULAR VOLUME 93.6 fL (83.0-99.0); MEAN PLATELET VOLUME 9.4 fL (9.4-12.4); MONOCYTES ABSOLUTE AUTO 0.68 K/uL (0.00-0.80); MONOCYTES PERCENT AUTO 7.5 % (0.0-8.0); NEUTROPHILS ABSOLUTE AUTO 4.73 K/uL (1.80-7.70); NEUTROPHILS PERCENT AUTO 52.1 % (41.0-71.0); PLATELET COUNT,PLT 172 K/uL (150-400); WHITE BLOOD CELL COUNT,WBC 9.07 K/uL (3.9-11.3)
[2023-03-11] MEDS ORDERED: methylPREDNISolone Sodium Succinate 125 MG/2 ML SDV IVPUSH ONE (18:46)
[2023-03-11 18:50] LABS: A/G RATIO 0.9 (0.9-1.6); ALBUMIN 3.8 g/dL (3.4-5.0); CALCIUM 9.3 mg/dL (8.5-10.1); CARBON DIOXIDE,CO2 24.4 mmol/L (21.0-32.0); EST CRCL DRUG DOSING (CG) 95.9 mL/min; POTASSIUM,K 4.3 mmol/L (3.5-5.1)
[2023-03-11 19:16] LABS: CORONAVIRUS COVID-19 NAA NEGATIVE (NEGATIVE); INFLUENZA A NAA NEGATIVE (NEGATIVE); INFLUENZA B NAA NEGATIVE (NEGATIVE); RESPIRATORY SYNCYTIAL VIR NAA NEGATIVE (NEGATIVE)
[2023-03-11] MEDS ORDERED: Azithromycin 250 MG Tab PO STA (20:01)
[2023-03-11 20:14] VITALS: BP 125/86; PULSE 100
== END 2023-03-11 20:43 | disposition home or self-care (01) ==
LOC: MW.ED 17:52
DX: J40 Bronchitis, not specified as acute or chronic (principal); F10.90 Alcohol use, unspecified, uncomplicated; I10 Essential (primary) hypertension; Z88.8 Allergy status to other drugs, medicaments and biological substances; Z79.2 Long term (current) use of antibiotics; Z79.899 Other long term (current) drug therapy; Z20.822 Contact with and (suspected) exposure to COVID-19
CPT/HCPCS: 0241U; 36415; 71045; 80053; 83690; 83880; 84484; 85025; 93005; 96361; 96374; 99285; A9270; J2930; J7030; 93010; 99284

== ENCOUNTER 2023-03-12 09:51 | Emergency (ER) | payer SELFPAY ==
[2023-03-12] MEDS ORDERED: Sodium Chloride 0.9% 1,000 ML IV ONE (09:57)
[2023-03-12] MEDS ORDERED: LORazepam 2 MG/ML SDV IVPUSH ONE (09:58)
[2023-03-12 10:20] LABS: BASOPHILS ABSOLUTE AUTO 0.01 K/uL (0.00-0.20); BASOPHILS PERCENT AUTO 0.3 % (0.0-1.0); HEMATOCRIT 50.9 % (42.0-52.0); HEMOGLOBIN 17.6 g/dL (14.0-18.0); IMMATURE GRAN ABSOLUTE AUTO 0.01 K/uL (0.00-0.05); IMMATURE GRAN PERCENT AUTO 0.3 % (0.0-0.4); LYMPHOCYTES ABSOLUTE AUTO 0.78 K/uL (1.00-4.80); LYMPHOCYTES PERCENT AUTO 21.3 % (24.0-44.0); MEAN CORPUSCULAR HEMOGLOBIN 32.7 pg (28.0-32.0); MEAN CORPUSCULAR HGB CONC 34.6 g/dL (32.0-36.0); MEAN CORPUSCULAR VOLUME 94.4 fL (83.0-99.0); MEAN PLATELET VOLUME 9.6 fL (9.4-12.4); MONOCYTES ABSOLUTE AUTO 0.03 K/uL (0.00-0.80); MONOCYTES PERCENT AUTO 0.8 % (0.0-8.0); NEUTROPHILS ABSOLUTE AUTO 2.84 K/uL (1.80-7.70); NEUTROPHILS PERCENT AUTO 77.3 % (41.0-71.0); PLATELET COUNT,PLT 134 K/uL (150-400); RED BLOOD CELL COUNT 5.39 M/uL (4.52-5.90); WHITE BLOOD CELL COUNT,WBC 3.67 K/uL (3.9-11.3)
[2023-03-12 10:42] LABS: A/G RATIO 0.9 (0.9-1.6); ACETAMINOPHEN <2.0 ug/mL; ALANINE AMINOTRANSFERASE,ALT 43 IU/L (14-63); ALKALINE PHOSPHATASE 109 U/L (46-116); ASPARTATE AMNIOTRANSFERASE,AST 66 IU/L (15-37); BILIRUBIN TOTAL 1.3 mg/dL (0.2-1.0); BLOOD UREA NITROGEN,BUN 18 mg/dL (7.0-18.0); CALCIUM 9.1 mg/dL (8.5-10.1); CARBON DIOXIDE,CO2 21.6 mmol/L (21.0-32.0); CHLORIDE,CL 96 mmol/L (98-107); ETHANOL BLOOD MEDICAL 230 mg/dL; GLUCOSE RANDOM 109 mg/dL (74-106); MAGNESIUM 1.5 mg/dL (1.8-2.4); POTASSIUM,K 4.5 mmol/L (3.5-5.1); PROTEIN TOTAL,TP 8.3 g/dL (6.4-8.2); SALICYLATE 0.7 mg/dL (0.0-20.0); SODIUM,NA 138 mmol/L (136-148); TSH ULTRASENSITIVE 0.63 uIU/mL (0.36-3.74)
[2023-03-12 10:47] LABS: ESTIMATED GFR 88 mL/min (>60)
[2023-03-12 11:00] LABS: INR 1.12 (0.86-1.11); PTT,PARTIAL THROMBOPLSTIN TIME 28.1 SEC (23.9-30.7)
[2023-03-12] MEDS ORDERED: Magnesium Sulfate/Water 2 GM in Premix Bag 1 BAG IV ONE (11:42)
[2023-03-12] MEDS ORDERED: Multivitamin Tab PO STA (11:42)
[2023-03-12] MEDS ORDERED: Folic Acid 1 MG/0.2 ML UD Syringe IV STA (11:42)
[2023-03-12 14:12] VITALS: BP 108/75; PULSE 103
== END 2023-03-12 13:26 | disposition home or self-care (01) ==
LOC: MW.ED 09:51
DX: F10.939 Alcohol use, unspecified with withdrawal, unspecified (principal); I10 Essential (primary) hypertension; J44.9 Chronic obstructive pulmonary disease, unspecified; Z88.1 Allergy status to other antibiotic agents; Z79.899 Other long term (current) drug therapy
CPT/HCPCS: 36415; 80053; 80143; 80179; 80307; 83735; 84443; 85025; 85610; 85730; 93005; 96361; 96365; 96375; 99285; A9270; J2060; J3475; J7030; J3490

== ENCOUNTER 2023-03-12 23:43 | Inpatient (IN) | payer SELFPAY ==
[2023-03-12] MEDS ORDERED: Sodium Chloride 0.9% 1,000 ML IV ONE (23:51)
[2023-03-12] MEDS ORDERED: Sodium Chloride 0.9% 2.5 ML Syringe FLUSH PRN (23:51)
[2023-03-12] MEDS ORDERED: Sodium Chloride 0.9% 10 ML Syringe FLUSH PRN (23:51)
[2023-03-12] MEDS ORDERED: Ondansetron 4 MG/2 ML SDV IVPUSH ONE (23:51)
[2023-03-12] MEDS ORDERED: Cefepime 2 GM in Sodium Chloride 0.9% 50 ML IV ONE (23:51)
[2023-03-13 00:16] LABS: EOSINOPHILS ABSOLUTE AUTO 0.01 K/uL (0.00-0.45); EOSINOPHILS PERCENT AUTO 0.1 % (0.0-6.0); HEMATOCRIT 41.6 % (42.0-52.0); HEMOGLOBIN 15.1 g/dL (14.0-18.0); IMMATURE GRAN ABSOLUTE AUTO 0.02 K/uL (0.00-0.05); IMMATURE GRAN PERCENT AUTO 0.3 % (0.0-0.4); LYMPHOCYTES ABSOLUTE AUTO 1.12 K/uL (1.00-4.80); LYMPHOCYTES PERCENT AUTO 14.4 % (24.0-44.0); MEAN CORPUSCULAR HEMOGLOBIN 33.9 pg (28.0-32.0); MEAN CORPUSCULAR HGB CONC 36.3 g/dL (32.0-36.0); MEAN CORPUSCULAR VOLUME 93.3 fL (83.0-99.0); MEAN PLATELET VOLUME 9.7 fL (9.4-12.4); MONOCYTES ABSOLUTE AUTO 0.79 K/uL (0.00-0.80); MONOCYTES PERCENT AUTO 10.1 % (0.0-8.0); NEUTROPHILS ABSOLUTE AUTO 5.86 K/uL (1.80-7.70); NEUTROPHILS PERCENT AUTO 75.1 % (41.0-71.0); PLATELET COUNT,PLT 131 K/uL (150-400); RED BLOOD CELL COUNT 4.46 M/uL (4.52-5.90)
[2023-03-13] MEDS ORDERED: Sodium Chloride 0.9% 1,000 ML IV ONE ×3 (00:20→10:01)
[2023-03-13] MEDS ORDERED: Sodium Chloride 0.9% 500 ML IV SCH (00:30)
[2023-03-13 01:01] LABS: BASE EXCESS VENOUS -2.8 (-2.0-3.0); PH,VENOUS 7.38 (7.31-7.41)
[2023-03-13 01:02] LABS: APPEARANCE,URINE CLEAR; BILIRUBIN,URINE NEGATIVE (NEGATIVE); COLOR,URINE YELLOW; GLUCOSE,URINE NEGATIVE (NEGATIVE); KETONES,URINE 40 mg/dL (NEGATIVE); LEUKOCYTE ESTERASE,URINE NEGATIVE (NEGATIVE); NITRITE,URINE NEGATIVE (NEGATIVE); OCCULT BLOOD,URINE SMALL (NEGATIVE); PROTEIN,URINE 30 mg/dL (NEGATIVE); UROBILINOGEN,URINE 0.2 EU/dL (<2.0)
[2023-03-13 01:11] LABS: AMPHETAMINES SCREEN, URINE NEGATIVE (CUTOFF=500); BARBITURATE SCREEN,URINE NEGATIVE (CUTOFF=200); BENZODIAZEPINES SCREEN,URINE PRESUMPTIVE POSITIVE (CUTOFF=150); BUPRENORPHINE SCREEN,URINE NEGATIVE (CUTOFF=10); METHADONE SCREEN, URINE NEGATIVE (CUTOFF=200); METHAMPHETAMINES SCREEN, URINE NEGATIVE (CUTOFF=500); OXYCODONE SCREEN,URINE NEGATIVE (CUT0FF=100); PCP SCREEN,URINE NEGATIVE (CUTOFF=25); THC SCREEN,URINE 20 NG/ML NEGATIVE (CUTOFF=50)
[2023-03-13] MEDS ORDERED: Norepinephrine Bit/D5W Premix 250 ML IV SCH ×2 (01:15→09:15)
[2023-03-13 01:21] LABS: BACTERIA,URINE FEW (NEGATIVE); EPITHELIAL CELLS,URINE RARE (NONE-FEW); HYALINE CASTS,URINE 0-2 (0-2/LPF); WBC,URINE 0-2 (0-5/HPF)
[2023-03-13 01:23] LABS: INR 1.16 (0.86-1.11); PTT,PARTIAL THROMBOPLSTIN TIME 26.4 SEC (23.9-30.7)
[2023-03-13] MEDS ORDERED: Lidocaine 1% with EPINEPHrine 1:100,000 20 ML MDV INJECT ONE (01:26)
[2023-03-13 01:37] LABS: LACTIC ACID 5.1 mmol/L (0.4-2.0)
[2023-03-13 01:42] LABS: ALANINE AMINOTRANSFERASE,ALT 33 IU/L (14-63); ALKALINE PHOSPHATASE 76 U/L (46-116); ASPARTATE AMNIOTRANSFERASE,AST 57 IU/L (15-37); BILIRUBIN TOTAL 0.8 mg/dL (0.2-1.0); BLOOD UREA NITROGEN,BUN 28 mg/dL (7.0-18.0); CALCIUM 7.8 mg/dL (8.5-10.1); CHLORIDE,CL 99 mmol/L (98-107); CREATINE KINASE,CK 92 U/L (26-308); CREATININE 2.1 mg/dL (0.8-1.3); GLUCOSE RANDOM 109 mg/dL (74-106); LIPASE 46 U/L (16-77); MAGNESIUM 1.8 mg/dL (1.8-2.4); POTASSIUM,K 3.9 mmol/L (3.5-5.1); SODIUM,NA 136 mmol/L (136-148); TSH ULTRASENSITIVE 2.34 uIU/mL (0.36-3.74)
[2023-03-13 01:45] LABS: ESTIMATED GFR 36 mL/min (>60); ETHANOL BLOOD MEDICAL 344 mg/dL
[2023-03-13] MEDS ORDERED: VANCOmycin 2 GM/400 ML 400 ML IV ONE (02:30)
[2023-03-13] MEDS ORDERED: Iopamidol 755 MG/ML 500 ML Multipack Bottle IVPUSH ONE (04:33)
[2023-03-13] MEDS ORDERED: Lidocaine 1% 5 ML VIAL INJECT ONE (04:38)
[2023-03-13 04:51] LABS: CORONAVIRUS COVID-19 NAA NEGATIVE (NEGATIVE); INFLUENZA A NAA NEGATIVE (NEGATIVE); INFLUENZA B NAA NEGATIVE (NEGATIVE); RESPIRATORY SYNCYTIAL VIR NAA NEGATIVE (NEGATIVE)
[2023-03-13 04:56] LABS: HEMATOCRIT 40.6 % (42.0-52.0); HEMOGLOBIN 14.3 g/dL (14.0-18.0)
[2023-03-13 04:57] LABS: BASE EXCESS VENOUS -4.8 (-2.0-3.0); PH,VENOUS 7.31 (7.31-7.41)
[2023-03-13 05:23] LABS: BLOOD UREA NITROGEN,BUN 27 mg/dL (7.0-18.0); CALCIUM 7.7 mg/dL (8.5-10.1); CARBON DIOXIDE,CO2 22.3 mmol/L (21.0-32.0); CHLORIDE,CL 102 mmol/L (98-107); CREATININE 1.6 mg/dL (0.8-1.3); GLUCOSE RANDOM 145 mg/dL (74-106); POTASSIUM,K 4.1 mmol/L (3.5-5.1); SODIUM,NA 138 mmol/L (136-148)
[2023-03-13 05:24] LABS: ESTIMATED GFR 50 mL/min (>60); LACTIC ACID 2.9 mmol/L (0.4-2.0)
[2023-03-13] MEDS ORDERED: Lactated Ringers 1,000 ML IV SCH (05:45)
[2023-03-13] MEDS ORDERED: Lidocaine 1% 20 ML MDV ONE (08:24)
[2023-03-13] MEDS ORDERED: Midazolam 1 MG/ML 2 ML SDV ONE (08:31)
[2023-03-13] MEDS ORDERED: Midazolam 1 MG/ML 2 ML SDV IVPUSH ONE ×2 (08:50→09:12)
[2023-03-13] MEDS ORDERED: Lidocaine 1% 20 ML MDV INJECT ONE (09:14)
[2023-03-13 09:48] LABS: LACTIC ACID 2.8 mmol/L (0.4-2.0)
[2023-03-13] MEDS: Thiamine 200 MG/2 ML MDV IVPUSH SCH (10:50)
[2023-03-13] MEDS: chlordiazePOXIDE 25 MG Cap PO SCH ×2 (10:51→17:50)
[2023-03-13] MEDS: Cefepime 2 GM in Sodium Chloride 0.9% 50 ML IV SCH ×2 (10:51→17:53)
[2023-03-13] MEDS: Folic Acid 1 MG/0.2 ML UD Syringe IV SCH (10:51)
[2023-03-13] MEDS: LORazepam 2 MG/ML SDV IVPUSH PRN ×2 (13:18→21:30)
[2023-03-13] MEDS: Lactated Ringers 1,000 ML IV SCH ×2 (15:40→23:59)
[2023-03-13] MEDS: Phosphorus #1 250 MG Tab PO SCH (17:51)
[2023-03-14] MEDS: Phosphorus #1 250 MG Tab PO SCH ×5 (00:01→23:39)
[2023-03-14] MEDS: chlordiazePOXIDE 25 MG Cap PO SCH ×3 (01:08→18:05)
[2023-03-14] MEDS: Cefepime 2 GM in Sodium Chloride 0.9% 50 ML IV SCH ×3 (01:16→17:56)
[2023-03-14] MEDS: LORazepam 2 MG/ML SDV IVPUSH PRN (04:15)
[2023-03-14 05:36] LABS: BASOPHILS ABSOLUTE AUTO 0.02 K/uL (0.00-0.20); BASOPHILS PERCENT AUTO 0.5 % (0.0-1.0); EOSINOPHILS ABSOLUTE AUTO 0.11 K/uL (0.00-0.45); EOSINOPHILS PERCENT AUTO 2.9 % (0.0-6.0); HEMATOCRIT 37.6 % (42.0-52.0); HEMOGLOBIN 13.2 g/dL (14.0-18.0); IMMATURE GRAN ABSOLUTE AUTO 0.01 K/uL (0.00-0.05); IMMATURE GRAN PERCENT AUTO 0.3 % (0.0-0.4); LYMPHOCYTES ABSOLUTE AUTO 1.19 K/uL (1.00-4.80); LYMPHOCYTES PERCENT AUTO 31.7 % (24.0-44.0); MEAN CORPUSCULAR HEMOGLOBIN 33.7 pg (28.0-32.0); MEAN CORPUSCULAR HGB CONC 35.1 g/dL (32.0-36.0); MEAN CORPUSCULAR VOLUME 95.9 fL (83.0-99.0); MEAN PLATELET VOLUME 9.2 fL (9.4-12.4); MONOCYTES ABSOLUTE AUTO 0.37 K/uL (0.00-0.80); MONOCYTES PERCENT AUTO 9.9 % (0.0-8.0); NEUTROPHILS ABSOLUTE AUTO 2.05 K/uL (1.80-7.70); NEUTROPHILS PERCENT AUTO 54.7 % (41.0-71.0); RED BLOOD CELL COUNT 3.92 M/uL (4.52-5.90); WHITE BLOOD CELL COUNT,WBC 3.75 K/uL (3.9-11.3)
[2023-03-14 05:51] LABS: PLATELET COUNT,PLT 59 K/uL (150-400)
[2023-03-14 06:00] LABS: ALBUMIN 2.8 g/dL (3.4-5.0); BILIRUBIN TOTAL 1.4 mg/dL (0.2-1.0); CALCIUM 7.7 mg/dL (8.5-10.1); CARBON DIOXIDE,CO2 32.3 mmol/L (21.0-32.0); CREATININE 0.9 mg/dL (0.8-1.3); EST CRCL DRUG DOSING (CG) 106.56 mL/min; POTASSIUM,K 3.4 mmol/L (3.5-5.1); PROTEIN TOTAL,TP 5.6 g/dL (6.4-8.2)
[2023-03-14] MEDS ORDERED: Potassium Phosphates 30 MMOLE in Sodium Chloride 0.9% 500 ML IV ONE (09:00)
[2023-03-14] MEDS ORDERED: Potassium Phosphates 3 mMole/ML 15 ML SDV IV ONE (09:30)
[2023-03-14] MEDS: Thiamine 200 MG/2 ML MDV IVPUSH SCH (09:33)
[2023-03-14] MEDS: Folic Acid 1 MG/0.2 ML UD Syringe IV SCH (09:34)
[2023-03-14] MEDS ORDERED: Magnesium Sulfate (4.06 MEQ/ML) 5 GM/10 ML SDV IV STA (10:05)
[2023-03-14] MEDS ORDERED: Sodium Phosphate 15 mMole/5 ML SDV IV STA (10:05)
[2023-03-14] MEDS ORDERED: Sodium Chloride 0.9% 250 ML ONE (10:14)
[2023-03-14] MEDS: Pantoprazole 40 MG in Sodium Chloride 0.9% 10 ML IVPUSH SCH (10:19)
[2023-03-14] MEDS ORDERED: Potassium Chloride 20 MEQ Tab.ER PO ONE (10:35)
[2023-03-14] MEDS ORDERED: Magnesium Sulfate/Water 6 GM in Premix Bag 1 BAG IV ONE (10:45)
[2023-03-14] MEDS ORDERED: Sodium Phosphate 30 MMOLE in Sodium Chloride 0.9% 500 ML IV ONE ×3 (10:45→17:00)
[2023-03-14] MEDS ORDERED: Phosphorus #1 250 MG Tab PO SCH (12:00)
[2023-03-14] MEDS ORDERED: Ibuprofen 600 MG Tab PO ONE (12:39)
[2023-03-14 15:29] LABS: CALCIUM 7.7 mg/dL (8.5-10.1); CARBON DIOXIDE,CO2 33.1 mmol/L (21.0-32.0); CREATININE 0.9 mg/dL (0.8-1.3); EST CRCL DRUG DOSING (CG) 106.56 mL/min; MAGNESIUM 2.2 mg/dL (1.8-2.4); PHOSPHORUS 3.2 mg/dL (2.6-4.7)
[2023-03-15] MEDS: Albuterol/Ipratropium 3.0-0.5 MG/3 ML Neb Soln NEB PRN ×2 (00:10→08:02)
[2023-03-15] MEDS: chlordiazePOXIDE 25 MG Cap PO SCH ×3 (01:12→20:03)
[2023-03-15] MEDS: Cefepime 2 GM in Sodium Chloride 0.9% 50 ML IV SCH ×3 (01:16→17:45)
[2023-03-15 05:56] LABS: BASOPHILS ABSOLUTE AUTO 0.02 K/uL (0.00-0.20); BASOPHILS PERCENT AUTO 0.4 % (0.0-1.0); EOSINOPHILS ABSOLUTE AUTO 0.25 K/uL (0.00-0.45); EOSINOPHILS PERCENT AUTO 5.6 % (0.0-6.0); HEMATOCRIT 35.8 % (42.0-52.0); HEMOGLOBIN 12.2 g/dL (14.0-18.0); IMMATURE GRAN ABSOLUTE AUTO 0.01 K/uL (0.00-0.05); IMMATURE GRAN PERCENT AUTO 0.2 % (0.0-0.4); LYMPHOCYTES ABSOLUTE AUTO 1.24 K/uL (1.00-4.80); LYMPHOCYTES PERCENT AUTO 27.7 % (24.0-44.0); MEAN CORPUSCULAR HEMOGLOBIN 33.1 pg (28.0-32.0); MEAN CORPUSCULAR HGB CONC 34.1 g/dL (32.0-36.0); MEAN PLATELET VOLUME 9.7 fL (9.4-12.4); MONOCYTES ABSOLUTE AUTO 0.28 K/uL (0.00-0.80); MONOCYTES PERCENT AUTO 6.3 % (0.0-8.0); NEUTROPHILS ABSOLUTE AUTO 2.68 K/uL (1.80-7.70); NEUTROPHILS PERCENT AUTO 59.8 % (41.0-71.0); PLATELET COUNT,PLT 37 K/uL (150-400); RED BLOOD CELL COUNT 3.69 M/uL (4.52-5.90); WHITE BLOOD CELL COUNT,WBC 4.48 K/uL (3.9-11.3)
[2023-03-15] MEDS: Phosphorus #1 250 MG Tab PO SCH ×3 (06:03→17:45)
[2023-03-15 06:23] LABS: A/G RATIO 0.8 (0.9-1.6); ALBUMIN 2.5 g/dL (3.4-5.0); BILIRUBIN TOTAL 1.1 mg/dL (0.2-1.0); CALCIUM 7.4 mg/dL (8.5-10.1); CARBON DIOXIDE,CO2 33.9 mmol/L (21.0-32.0); CREATININE 0.8 mg/dL (0.8-1.3); EST CRCL DRUG DOSING (CG) 119.88 mL/min; MAGNESIUM 1.9 mg/dL (1.8-2.4); PHOSPHORUS 1.7 mg/dL (2.6-4.7); POTASSIUM,K 3.9 mmol/L (3.5-5.1); PROTEIN TOTAL,TP 5.5 g/dL (6.4-8.2)
[2023-03-15] MEDS: Pantoprazole 40 MG in Sodium Chloride 0.9% 10 ML IVPUSH SCH (06:30)
[2023-03-15] MEDS: Folic Acid 1 MG/0.2 ML UD Syringe IV SCH (08:01)
[2023-03-15] MEDS: Thiamine 200 MG/2 ML MDV IVPUSH SCH (08:01)
[2023-03-15] MEDS ORDERED: Potassium Phosphates 30 MMOLE in Sodium Chloride 0.9% 500 ML IV ONE (10:15)
[2023-03-15] MEDS ORDERED: Potassium Phosphates 3 mMole/ML 15 ML SDV IV ONE (10:15)
[2023-03-15] MEDS ORDERED: Ibuprofen 600 MG Tab PO ONE (17:08)
[2023-03-16] MEDS: Phosphorus #1 250 MG Tab PO SCH ×4 (01:17→17:24)
[2023-03-16] MEDS: Cefepime 2 GM in Sodium Chloride 0.9% 50 ML IV SCH ×3 (01:25→17:24)
[2023-03-16 06:07] LABS: BASOPHILS ABSOLUTE AUTO 0.04 K/uL (0.00-0.20); BASOPHILS PERCENT AUTO 0.9 % (0.0-1.0); EOSINOPHILS ABSOLUTE AUTO 0.33 K/uL (0.00-0.45); EOSINOPHILS PERCENT AUTO 7.6 % (0.0-6.0); HEMATOCRIT 38.2 % (42.0-52.0); IMMATURE GRAN ABSOLUTE AUTO 0.01 K/uL (0.00-0.05); IMMATURE GRAN PERCENT AUTO 0.2 % (0.0-0.4); LYMPHOCYTES ABSOLUTE AUTO 1.36 K/uL (1.00-4.80); LYMPHOCYTES PERCENT AUTO 31.3 % (24.0-44.0); MEAN CORPUSCULAR HEMOGLOBIN 32.9 pg (28.0-32.0); MEAN CORPUSCULAR VOLUME 96.7 fL (83.0-99.0); MEAN PLATELET VOLUME 11.1 fL (9.4-12.4); MONOCYTES ABSOLUTE AUTO 0.27 K/uL (0.00-0.80); MONOCYTES PERCENT AUTO 6.2 % (0.0-8.0); NEUTROPHILS ABSOLUTE AUTO 2.34 K/uL (1.80-7.70); NEUTROPHILS PERCENT AUTO 53.8 % (41.0-71.0); PLATELET COUNT,PLT 34 K/uL (150-400); RED BLOOD CELL COUNT 3.95 M/uL (4.52-5.90); WHITE BLOOD CELL COUNT,WBC 4.35 K/uL (3.9-11.3)
[2023-03-16] MEDS: Pantoprazole 40 MG in Sodium Chloride 0.9% 10 ML IVPUSH SCH ×2 (06:12→06:41)
[2023-03-16 06:38] LABS: A/G RATIO 0.8 (0.9-1.6); ALBUMIN 2.7 g/dL (3.4-5.0); CALCIUM 7.8 mg/dL (8.5-10.1); CARBON DIOXIDE,CO2 29.8 mmol/L (21.0-32.0); CREATININE 0.8 mg/dL (0.8-1.3); EST CRCL DRUG DOSING (CG) 119.88 mL/min; PHOSPHORUS 1.4 mg/dL (2.6-4.7); POTASSIUM,K 4.1 mmol/L (3.5-5.1); PROTEIN TOTAL,TP 5.9 g/dL (6.4-8.2)
[2023-03-16] MEDS: Thiamine 200 MG/2 ML MDV IVPUSH SCH (08:34)
[2023-03-16] MEDS: Folic Acid 1 MG/0.2 ML UD Syringe IV SCH (08:34)
[2023-03-16] MEDS: chlordiazePOXIDE 25 MG Cap PO SCH (08:34)
[2023-03-16] MEDS: Albuterol/Ipratropium 3.0-0.5 MG/3 ML Neb Soln NEB PRN (08:47)
[2023-03-16] MEDS ORDERED: Potassium Phosphates 3 mMole/ML 15 ML SDV IV ONE (11:11)
[2023-03-16] MEDS ORDERED: Ibuprofen 400 MG Tab PO PRN (11:13)
[2023-03-16] MEDS ORDERED: Potassium Phosphates 30 MMOLE in Sodium Chloride 0.9% 500 ML IV ONE (11:30)
[2023-03-17] MEDS: Cefepime 2 GM in Sodium Chloride 0.9% 50 ML IV SCH ×3 (01:16→17:22)
[2023-03-17] MEDS: Phosphorus #1 250 MG Tab PO SCH ×4 (01:16→17:21)
[2023-03-17 06:07] LABS: BASOPHILS ABSOLUTE AUTO 0.03 K/uL (0.00-0.20); BASOPHILS PERCENT AUTO 0.7 % (0.0-1.0); EOSINOPHILS ABSOLUTE AUTO 0.27 K/uL (0.00-0.45); EOSINOPHILS PERCENT AUTO 6.4 % (0.0-6.0); HEMATOCRIT 39.2 % (42.0-52.0); HEMOGLOBIN 13.4 g/dL (14.0-18.0); IMMATURE GRAN ABSOLUTE AUTO 0.02 K/uL (0.00-0.05); IMMATURE GRAN PERCENT AUTO 0.5 % (0.0-0.4); LYMPHOCYTES ABSOLUTE AUTO 1.16 K/uL (1.00-4.80); LYMPHOCYTES PERCENT AUTO 27.6 % (24.0-44.0); MEAN CORPUSCULAR HEMOGLOBIN 33.3 pg (28.0-32.0); MEAN CORPUSCULAR HGB CONC 34.2 g/dL (32.0-36.0); MEAN CORPUSCULAR VOLUME 97.3 fL (83.0-99.0); MEAN PLATELET VOLUME 10.1 fL (9.4-12.4); MONOCYTES ABSOLUTE AUTO 0.39 K/uL (0.00-0.80); MONOCYTES PERCENT AUTO 9.3 % (0.0-8.0); NEUTROPHILS ABSOLUTE AUTO 2.34 K/uL (1.80-7.70); NEUTROPHILS PERCENT AUTO 55.5 % (41.0-71.0); RED BLOOD CELL COUNT 4.03 M/uL (4.52-5.90); WHITE BLOOD CELL COUNT,WBC 4.21 K/uL (3.9-11.3)
[2023-03-17 06:30] LABS: A/G RATIO 0.8 (0.9-1.6); ALBUMIN 2.7 g/dL (3.4-5.0); BILIRUBIN TOTAL 0.8 mg/dL (0.2-1.0); CARBON DIOXIDE,CO2 27.8 mmol/L (21.0-32.0); CREATININE 0.8 mg/dL (0.8-1.3); EST CRCL DRUG DOSING (CG) 119.88 mL/min; MAGNESIUM 1.3 mg/dL (1.8-2.4); PHOSPHORUS 2.2 mg/dL (2.6-4.7); POTASSIUM,K 4.3 mmol/L (3.5-5.1); PROTEIN TOTAL,TP 6.1 g/dL (6.4-8.2)
[2023-03-17 06:44] LABS: PLATELET COUNT,PLT 47 K/uL (150-400)
[2023-03-17] MEDS: Pantoprazole 40 MG Tab.CR PO SCH (06:58)
[2023-03-17] MEDS ORDERED: Potassium Phosphates 3 mMole/ML 15 ML SDV IV STA (07:04)
[2023-03-17] MEDS ORDERED: Magnesium Sulfate/Water 2 GM/50 ML Premix Bag IV ONE (07:04)
[2023-03-17] MEDS ORDERED: Magnesium Sulfate/Water 50 ML IV ONE (07:15)
[2023-03-17] MEDS: Albuterol/Ipratropium 3.0-0.5 MG/3 ML Neb Soln NEB PRN (07:20)
[2023-03-17] MEDS ORDERED: Potassium Phosphates 30 MMOLE in Sodium Chloride 0.9% 250 ML IV ONE (08:00)
[2023-03-17] MEDS: Thiamine 200 MG/2 ML MDV IVPUSH SCH (08:23)
[2023-03-17] MEDS: Folic Acid 1 MG/0.2 ML UD Syringe IV SCH (08:25)
[2023-03-17] MEDS ORDERED: Potassium Phosphates 30 MMOLE in Sodium Chloride 0.9% 500 ML IV ONE (08:45)
[2023-03-17] MEDS ORDERED: chlordiazePOXIDE 25 MG Cap PO SCH (09:00)
[2023-03-17 15:39] LABS: CALCIUM 8.3 mg/dL (8.5-10.1); CARBON DIOXIDE,CO2 29.2 mmol/L (21.0-32.0); CREATININE 0.7 mg/dL (0.8-1.3); MAGNESIUM 1.5 mg/dL (1.8-2.4); PHOSPHORUS 2.8 mg/dL (2.6-4.7); POTASSIUM,K 4.9 mmol/L (3.5-5.1)
[2023-03-18] MEDS: Phosphorus #1 250 MG Tab PO SCH ×3 (01:08→11:21)
[2023-03-18] MEDS: Cefepime 2 GM in Sodium Chloride 0.9% 50 ML IV SCH (01:23)
[2023-03-18 06:24] LABS: CARBON DIOXIDE,CO2 27.3 mmol/L (21.0-32.0); CREATININE 0.9 mg/dL (0.8-1.3); EST CRCL DRUG DOSING (CG) 106.56 mL/min; MAGNESIUM 1.4 mg/dL (1.8-2.4); PHOSPHORUS 3.4 mg/dL (2.6-4.7); POTASSIUM,K 4.6 mmol/L (3.5-5.1)
[2023-03-18] MEDS: Pantoprazole 40 MG Tab.CR PO SCH ×2 (06:27→06:35)
[2023-03-18] MEDS ORDERED: Magnesium Sulfate/Water 2 GM in Premix Bag 1 BAG IV ONE (07:47)
[2023-03-18] MEDS: Thiamine 200 MG/2 ML MDV IVPUSH SCH (08:04)
[2023-03-18] MEDS: Folic Acid 1 MG/0.2 ML UD Syringe IV SCH (08:05)
[2023-03-18 18:15] VITALS: BP 148/99; PULSE 84
== END 2023-03-18 17:20 | disposition home or self-care (01) | DRG 871 ==
LOC: MW.ED 23:43 → MW.ICU 03-13 06:33 → MW.MS 03-15 12:47
PROVIDERS: ADMIT Internal Medicine; ATTEND Internal Medicine
PROC: 02HV33Z Insertion of Infusion Device into Superior Vena Cava, Percutaneous Approach (ICD-10-PCS; principal; 2023-03-13)
PROC: 3E033XZ Introduction of Vasopressor into Peripheral Vein, Percutaneous Approach (ICD-10-PCS; 2023-03-13)
PROC: 3E03329 Introduction of Other Anti-infective into Peripheral Vein, Percutaneous Approach (ICD-10-PCS; 2023-03-13)
DX: A41.9 Sepsis, unspecified organism (principal); R57.1 Hypovolemic shock; R65.21 Severe sepsis with septic shock; N17.9 Acute kidney failure, unspecified; F10.239 Alcohol dependence with withdrawal, unspecified; I10 Essential (primary) hypertension; J44.9 Chronic obstructive pulmonary disease, unspecified; F10.229 Alcohol dependence with intoxication, unspecified; D69.6 Thrombocytopenia, unspecified; E87.5 Hyperkalemia; E83.41 Hypermagnesemia; Z98.890 Other specified postprocedural states; Z88.1 Allergy status to other antibiotic agents; Z79.899 Other long term (current) drug therapy; Z79.51 Long term (current) use of inhaled steroids; Z11.52 Encounter for screening for COVID-19
CPT/HCPCS: 0241U; 36415; 36556; 70450; 70450-26; 71045; 71045-26; 71275; 71275-26; 72125; 72125-26; 74177; 74177-26; 80048; 80053; 80202; 80305-QW; 80307; 81001; 82550; 82803; 83605; 83690; 83735; 83880; 84100; 84443; 84484; 85014; 85018; 85025; 85610; 85730; 87040; 93005; 93010; 99291; A9270-GY; C9113; J0692; J2060; J2250; J2405; J3370; J3411; J3475; J3490; J7030; J7040; J7050; J7120; J7620-GY; Q9967

== ENCOUNTER 2023-04-30 06:20 | Inpatient (IN) | payer OTHER ==
[2023-04-30] MEDS: Sodium Chloride 0.9% 1,000 ML IV ONE (07:12)
[2023-04-30] MEDS: Sodium Chloride 0.9% 2.5 ML Syringe FLUSH PRN (07:13)
[2023-04-30] MEDS: Sodium Chloride 0.9% 10 ML Syringe FLUSH PRN (07:13)
[2023-04-30 07:24] LABS: BASOPHILS ABSOLUTE AUTO 0.06 K/uL (0.00-0.20); BASOPHILS PERCENT AUTO 0.8 % (0.0-1.0); EOSINOPHILS ABSOLUTE AUTO 0.25 K/uL (0.00-0.45); EOSINOPHILS PERCENT AUTO 3.2 % (0.0-6.0); HEMATOCRIT 46.9 % (42.0-52.0); HEMOGLOBIN 16.2 g/dL (14.0-18.0); IMMATURE GRAN ABSOLUTE AUTO 0.02 K/uL (0.00-0.05); IMMATURE GRAN PERCENT AUTO 0.3 % (0.0-0.4); LYMPHOCYTES ABSOLUTE AUTO 2.87 K/uL (1.00-4.80); LYMPHOCYTES PERCENT AUTO 36.5 % (24.0-44.0); MEAN CORPUSCULAR HEMOGLOBIN 32.1 pg (28.0-32.0); MEAN CORPUSCULAR HGB CONC 34.5 g/dL (32.0-36.0); MEAN CORPUSCULAR VOLUME 92.9 fL (83.0-99.0); MEAN PLATELET VOLUME 9.7 fL (9.4-12.4); MONOCYTES ABSOLUTE AUTO 0.45 K/uL (0.00-0.80); MONOCYTES PERCENT AUTO 5.7 % (0.0-8.0); NEUTROPHILS ABSOLUTE AUTO 4.22 K/uL (1.80-7.70); NEUTROPHILS PERCENT AUTO 53.5 % (41.0-71.0); PLATELET COUNT,PLT 157 K/uL (150-400); RED BLOOD CELL COUNT 5.05 M/uL (4.52-5.90); WHITE BLOOD CELL COUNT,WBC 7.87 K/uL (3.9-11.3)
[2023-04-30 07:40] LABS: INR 1.07 (0.86-1.11)
[2023-04-30 07:49] LABS: A/G RATIO 0.9 (0.9-1.6); ALBUMIN 3.4 g/dL (3.4-5.0); BILIRUBIN TOTAL 0.3 mg/dL (0.2-1.0); CALCIUM 8.7 mg/dL (8.5-10.1); CARBON DIOXIDE,CO2 30.3 mmol/L (21.0-32.0); CREATININE 1.3 mg/dL (0.8-1.3); EST CRCL DRUG DOSING (CG) 73.77 mL/min; POTASSIUM,K 3.9 mmol/L (3.5-5.1); PROTEIN TOTAL,TP 7.2 g/dL (6.4-8.2)
[2023-04-30 08:15] LABS: APPEARANCE,URINE CLEAR; BILIRUBIN,URINE NEGATIVE (NEGATIVE); COLOR,URINE YELLOW; GLUCOSE,URINE NEGATIVE (NEGATIVE); KETONES,URINE NEGATIVE (NEGATIVE); LEUKOCYTE ESTERASE,URINE NEGATIVE (NEGATIVE); NITRITE,URINE POSITIVE (NEGATIVE); OCCULT BLOOD,URINE NEGATIVE (NEGATIVE); PROTEIN,URINE TRACE mg/dL (NEGATIVE); UROBILINOGEN,URINE 0.2 EU/dL (<2.0)
[2023-04-30 08:27] LABS: LACTIC ACID 2.5 mmol/L (0.4-2.0)
[2023-04-30 08:27] LABS: EPITHELIAL CELLS,URINE OCCASIONAL (NONE-FEW); RBC,URINE 0-2 (0-2/HPF); WBC,URINE 0-3 (0-5/HPF)
[2023-04-30 08:28] LABS: BACTERIA,URINE FEW (NEGATIVE); HYALINE CASTS,URINE 0-2 (0-2/LPF); MUCUS,URINE LIGHT (NONE-MOD)
[2023-04-30] MEDS: Sodium Chloride 0.9% 1,000 ML IV STA (10:03)
[2023-04-30] MEDS ORDERED: Thiamine 100 MG in Sodium Chloride 0.9% 100 ML IV SCH (10:30)
[2023-04-30] MEDS: Thiamine 200 MG/2 ML MDV IVPUSH SCH (10:32)
[2023-04-30] MEDS ORDERED: Ondansetron 4 MG/2 ML SDV IVPUSH PRN (11:18)
[2023-04-30] MEDS ORDERED: Sodium Chloride 0.9% 1,000 ML IV SCH (11:30)
[2023-04-30] MEDS: Enoxaparin 40 MG/0.4 ML Syringe SUBCUT SCH (12:27)
[2023-04-30] MEDS: LORazepam 2 MG/ML SDV IVPUSH PRN (12:27)
[2023-04-30] MEDS: Diazepam 5 MG Tab PO SCH (12:27)
[2023-04-30] MEDS: Folic Acid 1 MG/0.2 ML UD Syringe IV SCH (12:34)
[2023-04-30] MEDS: cefTRIAXone 1 GM in Sodium Chloride 0.9% 50 ML IV SCH (13:00)
[2023-04-30] MEDS: Diazepam 2 MG Tab PO SCH (13:14)
[2023-04-30 13:54] LABS: AMPHETAMINES SCREEN, URINE NEGATIVE (CUTOFF=500); BARBITURATE SCREEN,URINE NEGATIVE (CUTOFF=200); BENZODIAZEPINES SCREEN,URINE PRESUMPTIVE POSITIVE (CUTOFF=150); BUPRENORPHINE SCREEN,URINE NEGATIVE (CUTOFF=10); METHADONE SCREEN, URINE NEGATIVE (CUTOFF=200); METHAMPHETAMINES SCREEN, URINE NEGATIVE (CUTOFF=500); OXYCODONE SCREEN,URINE NEGATIVE (CUT0FF=100); PCP SCREEN,URINE NEGATIVE (CUTOFF=25); THC SCREEN,URINE 20 NG/ML NEGATIVE (CUTOFF=50)
[2023-04-30] MEDS: Sodium Chloride 0.9% 1,000 ML IV SCH (13:56)
[2023-04-30] MEDS: Pantoprazole 40 MG in Sodium Chloride 0.9% 10 ML IVPUSH SCH (21:30)
[2023-05-01 05:28] LABS: BASOPHILS ABSOLUTE AUTO 0.03 K/uL (0.00-0.20); BASOPHILS PERCENT AUTO 0.7 % (0.0-1.0); EOSINOPHILS ABSOLUTE AUTO 0.19 K/uL (0.00-0.45); EOSINOPHILS PERCENT AUTO 4.1 % (0.0-6.0); HEMATOCRIT 41.7 % (42.0-52.0); HEMOGLOBIN 14.1 g/dL (14.0-18.0); IMMATURE GRAN ABSOLUTE AUTO 0.01 K/uL (0.00-0.05); IMMATURE GRAN PERCENT AUTO 0.2 % (0.0-0.4); LYMPHOCYTES ABSOLUTE AUTO 1.54 K/uL (1.00-4.80); LYMPHOCYTES PERCENT AUTO 33.6 % (24.0-44.0); MEAN CORPUSCULAR HEMOGLOBIN 31.8 pg (28.0-32.0); MEAN CORPUSCULAR HGB CONC 33.8 g/dL (32.0-36.0); MEAN CORPUSCULAR VOLUME 93.9 fL (83.0-99.0); MEAN PLATELET VOLUME 10.4 fL (9.4-12.4); MONOCYTES ABSOLUTE AUTO 0.38 K/uL (0.00-0.80); MONOCYTES PERCENT AUTO 8.3 % (0.0-8.0); NEUTROPHILS ABSOLUTE AUTO 2.44 K/uL (1.80-7.70); NEUTROPHILS PERCENT AUTO 53.1 % (41.0-71.0); RED BLOOD CELL COUNT 4.44 M/uL (4.52-5.90); WHITE BLOOD CELL COUNT,WBC 4.59 K/uL (3.9-11.3)
[2023-05-01 05:46] LABS: PLATELET COUNT,PLT 96 K/uL (150-400)
[2023-05-01 05:49] LABS: CALCIUM 8.1 mg/dL (8.5-10.1); CARBON DIOXIDE,CO2 26.1 mmol/L (21.0-32.0); CREATININE 0.9 mg/dL (0.8-1.3); EST CRCL DRUG DOSING (CG) 106.56 mL/min; MAGNESIUM 1.2 mg/dL (1.8-2.4); POTASSIUM,K 3.9 mmol/L (3.5-5.1)
[2023-05-01] MEDS: Thiamine 200 MG/2 ML MDV IVPUSH SCH (08:22)
[2023-05-01] MEDS: Magnesium Sulfate/Water 2 GM in Premix Bag 1 BAG IV ONE (08:52)
[2023-05-01] MEDS ORDERED: Thiamine 200 MG/2 ML MDV IVPUSH SCH (09:00)
[2023-05-01] MEDS ORDERED: Thiamine 100 MG in Sodium Chloride 0.9% 100 ML IV SCH (09:00)
[2023-05-01] MEDS: Acetaminophen 325 MG Tab PO PRN (19:01)
[2023-05-02 06:37] LABS: BASOPHILS ABSOLUTE AUTO 0.02 K/uL (0.00-0.20); BASOPHILS PERCENT AUTO 0.6 % (0.0-1.0); EOSINOPHILS ABSOLUTE AUTO 0.11 K/uL (0.00-0.45); EOSINOPHILS PERCENT AUTO 3.1 % (0.0-6.0); HEMOGLOBIN 13.2 g/dL (14.0-18.0); IMMATURE GRAN ABSOLUTE AUTO 0.01 K/uL (0.00-0.05); IMMATURE GRAN PERCENT AUTO 0.3 % (0.0-0.4); LYMPHOCYTES ABSOLUTE AUTO 1.13 K/uL (1.00-4.80); LYMPHOCYTES PERCENT AUTO 31.9 % (24.0-44.0); MEAN CORPUSCULAR HEMOGLOBIN 32.1 pg (28.0-32.0); MEAN CORPUSCULAR HGB CONC 34.7 g/dL (32.0-36.0); MEAN CORPUSCULAR VOLUME 92.5 fL (83.0-99.0); MEAN PLATELET VOLUME 10.3 fL (9.4-12.4); MONOCYTES ABSOLUTE AUTO 0.29 K/uL (0.00-0.80); MONOCYTES PERCENT AUTO 8.2 % (0.0-8.0); NEUTROPHILS ABSOLUTE AUTO 1.98 K/uL (1.80-7.70); NEUTROPHILS PERCENT AUTO 55.9 % (41.0-71.0); RED BLOOD CELL COUNT 4.11 M/uL (4.52-5.90); WHITE BLOOD CELL COUNT,WBC 3.54 K/uL (3.9-11.3)
[2023-05-02 07:00] LABS: CALCIUM 8.8 mg/dL (8.5-10.1); CARBON DIOXIDE,CO2 26.9 mmol/L (21.0-32.0); CREATININE 0.8 mg/dL (0.8-1.3); EST CRCL DRUG DOSING (CG) 119.88 mL/min; MAGNESIUM 1.5 mg/dL (1.8-2.4); POTASSIUM,K 3.8 mmol/L (3.5-5.1)
[2023-05-02 07:01] LABS: PLATELET COUNT,PLT 147 K/uL (150-400)
[2023-05-02] MEDS: Magnesium Sulfate/Water 2 GM in Premix Bag 1 BAG IV ONE (09:12)
[2023-05-02] MEDS: Diazepam 5 MG Tab PO SCH (09:27)
[2023-05-02] MEDS: Ibuprofen 800 MG Tab PO SCH (11:43)
[2023-05-02] MEDS: Nicotine 7 MG/24 Hr Patch TRDERM SCH (21:01)
[2023-05-03 06:29] LABS: BASOPHILS ABSOLUTE AUTO 0.02 K/uL (0.00-0.20); BASOPHILS PERCENT AUTO 0.4 % (0.0-1.0); EOSINOPHILS ABSOLUTE AUTO 0.21 K/uL (0.00-0.45); EOSINOPHILS PERCENT AUTO 4.5 % (0.0-6.0); HEMATOCRIT 38.5 % (42.0-52.0); HEMOGLOBIN 13.4 g/dL (14.0-18.0); IMMATURE GRAN ABSOLUTE AUTO 0.01 K/uL (0.00-0.05); IMMATURE GRAN PERCENT AUTO 0.2 % (0.0-0.4); LYMPHOCYTES ABSOLUTE AUTO 1.38 K/uL (1.00-4.80); LYMPHOCYTES PERCENT AUTO 29.5 % (24.0-44.0); MEAN CORPUSCULAR HEMOGLOBIN 32.3 pg (28.0-32.0); MEAN CORPUSCULAR HGB CONC 34.8 g/dL (32.0-36.0); MEAN CORPUSCULAR VOLUME 92.8 fL (83.0-99.0); MEAN PLATELET VOLUME 10.3 fL (9.4-12.4); MONOCYTES PERCENT AUTO 6.4 % (0.0-8.0); NEUTROPHILS ABSOLUTE AUTO 2.76 K/uL (1.80-7.70); RED BLOOD CELL COUNT 4.15 M/uL (4.52-5.90); WHITE BLOOD CELL COUNT,WBC 4.68 K/uL (3.9-11.3)
[2023-05-03 06:44] LABS: CALCIUM 8.7 mg/dL (8.5-10.1); CARBON DIOXIDE,CO2 26.8 mmol/L (21.0-32.0); CREATININE 0.8 mg/dL (0.8-1.3); EST CRCL DRUG DOSING (CG) 119.88 mL/min; MAGNESIUM 1.6 mg/dL (1.8-2.4); POTASSIUM,K 3.9 mmol/L (3.5-5.1)
[2023-05-03 07:03] LABS: PLATELET COUNT,PLT 110 K/uL (150-400)
[2023-05-03] MEDS: Magnesium Sulfate/Water 2 GM in Premix Bag 1 BAG IV ONE (08:18)
[2023-05-03] MEDS: Diazepam 5 MG Tab PO SCH (09:38)
[2023-05-03] MEDS: Nicotine 7 MG/24 Hr Patch TRDERM SCH (12:48)
[2023-05-03 15:33] VITALS: BP 143/103; PULSE 68
== END 2023-05-03 15:36 | disposition home or self-care (01) | DRG 897 ==
LOC: MW.ED 06:20 → MW.ICU 10:51 → MW.MS 05-01 18:36
PROVIDERS: ADMIT Internal Medicine; ATTEND Internal Medicine
DX: F10.239 Alcohol dependence with withdrawal, unspecified (principal); N17.9 Acute kidney failure, unspecified; E87.20 Acidosis, unspecified; N39.0 Urinary tract infection, site not specified; F10.220 Alcohol dependence with intoxication, uncomplicated; I95.9 Hypotension, unspecified; I10 Essential (primary) hypertension; J44.9 Chronic obstructive pulmonary disease, unspecified; G40.909 Epilepsy, unspecified, not intractable, without status epilepticus; M10.9 Gout, unspecified; Z98.890 Other specified postprocedural states; Z88.1 Allergy status to other antibiotic agents; Z79.899 Other long term (current) drug therapy; Z79.51 Long term (current) use of inhaled steroids
CPT/HCPCS: 36415; 80048; 80053; 80305-QW; 80307; 81001; 83605; 83690; 83735; 84484; 85025; 85610; 87040; 87086; 93005; 93010; 96361; 96374; 99285; 99285-25; A9270-GY; C9113; J0696; J1650; J2060; J3411; J3475; J3490; J7030

== ENCOUNTER 2023-06-16 08:06 | Emergency (ER) | payer OTHER ==
[2023-06-16] MEDS: LORazepam 2 MG/ML SDV IVPUSH ONE (08:51)
[2023-06-16] MEDS: Ondansetron 4 MG/2 ML SDV IVPUSH ONE ×2 (08:51→11:41)
[2023-06-16] MEDS: Sodium Chloride 0.9% 1,000 ML IV ONE ×2 (08:51→11:29)
[2023-06-16] MEDS: Sodium Chloride 0.9% 10 ML Syringe FLUSH PRN (08:52)
[2023-06-16] MEDS: Sodium Chloride 0.9% 2.5 ML Syringe FLUSH PRN (08:52)
[2023-06-16 09:06] LABS: BASOPHILS ABSOLUTE AUTO 0.05 K/uL (0.00-0.20); BASOPHILS PERCENT AUTO 0.6 % (0.0-1.0); EOSINOPHILS ABSOLUTE AUTO 0.09 K/uL (0.00-0.45); EOSINOPHILS PERCENT AUTO 1.1 % (0.0-6.0); HEMATOCRIT 46.9 % (42.0-52.0); HEMOGLOBIN 16.9 g/dL (14.0-18.0); IMMATURE GRAN ABSOLUTE AUTO 0.02 K/uL (0.00-0.05); IMMATURE GRAN PERCENT AUTO 0.3 % (0.0-0.4); LYMPHOCYTES ABSOLUTE AUTO 1.47 K/uL (1.00-4.80); LYMPHOCYTES PERCENT AUTO 18.6 % (24.0-44.0); MEAN CORPUSCULAR HEMOGLOBIN 31.6 pg (28.0-32.0); MEAN CORPUSCULAR VOLUME 87.8 fL (83.0-99.0); MEAN PLATELET VOLUME 9.9 fL (9.4-12.4); MONOCYTES ABSOLUTE AUTO 0.54 K/uL (0.00-0.80); MONOCYTES PERCENT AUTO 6.8 % (0.0-8.0); NEUTROPHILS ABSOLUTE AUTO 5.72 K/uL (1.80-7.70); NEUTROPHILS PERCENT AUTO 72.6 % (41.0-71.0); PLATELET COUNT,PLT 149 K/uL (150-400); RED BLOOD CELL COUNT 5.34 M/uL (4.52-5.90); WHITE BLOOD CELL COUNT,WBC 7.89 K/uL (3.9-11.3)
[2023-06-16 09:44] LABS: CORONAVIRUS COVID-19 NAA NEGATIVE (NEGATIVE); INFLUENZA A NAA NEGATIVE (NEGATIVE); INFLUENZA B NAA NEGATIVE (NEGATIVE)
[2023-06-16 09:45] LABS: ALBUMIN 4.2 g/dL (3.4-5.0); BILIRUBIN TOTAL 1.4 mg/dL (0.2-1.0); CALCIUM 9.8 mg/dL (8.5-10.1); CARBON DIOXIDE,CO2 25.8 mmol/L (21.0-32.0); CREATININE 1.9 mg/dL (0.8-1.3); EST CRCL DRUG DOSING (CG) 50.47 mL/min; MAGNESIUM 1.5 mg/dL (1.8-2.4); POTASSIUM,K 3.7 mmol/L (3.5-5.1); PROTEIN TOTAL,TP 8.3 g/dL (6.4-8.2)
[2023-06-16] MEDS: PHENobarbitaL sodium 260 MG in Sodium Chloride 0.9% 100 ML IV ONE (11:29)
[2023-06-16 11:41] LABS: APPEARANCE,URINE CLEAR; BILIRUBIN,URINE NEGATIVE (NEGATIVE); COLOR,URINE YELLOW; GLUCOSE,URINE 100 mg/dL (NEGATIVE); KETONES,URINE 15 mg/dL (NEGATIVE); LEUKOCYTE ESTERASE,URINE NEGATIVE (NEGATIVE); NITRITE,URINE NEGATIVE (NEGATIVE); OCCULT BLOOD,URINE SMALL (NEGATIVE); PROTEIN,URINE TRACE mg/dL (NEGATIVE); UROBILINOGEN,URINE 0.2 EU/dL (<2.0)
[2023-06-16] MEDS: Thiamine 200 MG/2 ML MDV IVPUSH ONE (11:41)
[2023-06-16] MEDS: Thiamine 100 MG in Sodium Chloride 0.9% 100 ML IV ONE (11:44)
[2023-06-16 11:49] LABS: AMPHETAMINES SCREEN, URINE NEGATIVE (CUTOFF=500); BACTERIA,URINE FEW (NEGATIVE); BARBITURATE SCREEN,URINE NEGATIVE (CUTOFF=200); BENZODIAZEPINES SCREEN,URINE PRESUMPTIVE POSITIVE (CUTOFF=150); BUPRENORPHINE SCREEN,URINE NEGATIVE (CUTOFF=10); EPITHELIAL CELLS,URINE OCCASIONAL (NONE-FEW); METHADONE SCREEN, URINE NEGATIVE (CUTOFF=200); METHAMPHETAMINES SCREEN, URINE NEGATIVE (CUTOFF=500); OXYCODONE SCREEN,URINE NEGATIVE (CUT0FF=100); PCP SCREEN,URINE NEGATIVE (CUTOFF=25); RBC,URINE 0-2 (0-2/HPF); THC SCREEN,URINE 20 NG/ML NEGATIVE (CUTOFF=50); WBC,URINE 0-1 (0-5/HPF)
[2023-06-16 12:36] VITALS: BP 116/91; PULSE 99
== END 2023-06-16 13:00 | disposition home or self-care (01) ==
LOC: MW.ED 08:06
DX: F10.130 Alcohol abuse with withdrawal, uncomplicated (principal); E86.0 Dehydration; I10 Essential (primary) hypertension; J44.9 Chronic obstructive pulmonary disease, unspecified; Z79.899 Other long term (current) drug therapy; Z79.51 Long term (current) use of inhaled steroids; Z75.8 Other problems related to medical facilities and other health care
CPT/HCPCS: 0240U; 36415; 71045; 80053; 80305; 80307; 81001; 83690; 83735; 85025; 93005; 96361; 96365; 96375; 96376; 99285; J2060; J2405; J2560; J3411; J3490; J7030; 93010; 99284

== ENCOUNTER 2023-07-15 19:04 | Inpatient (IN) | payer OTHER ==
[2023-07-15] MEDS: Sodium Chloride 0.9% 1,000 ML IV ONE ×3 (19:48→21:29)
[2023-07-15] MEDS: Ondansetron 4 MG/2 ML SDV IVPUSH ONE (20:14)
[2023-07-15 20:30] LABS: BASOPHILS ABSOLUTE AUTO 0.05 K/uL (0.00-0.20); BASOPHILS PERCENT AUTO 0.8 % (0.0-1.0); EOSINOPHILS ABSOLUTE AUTO 0.12 K/uL (0.00-0.45); HEMATOCRIT 45.9 % (42.0-52.0); IMMATURE GRAN ABSOLUTE AUTO 0.01 K/uL (0.00-0.05); IMMATURE GRAN PERCENT AUTO 0.2 % (0.0-0.4); LYMPHOCYTES ABSOLUTE AUTO 2.28 K/uL (1.00-4.80); LYMPHOCYTES PERCENT AUTO 37.6 % (24.0-44.0); MEAN CORPUSCULAR HEMOGLOBIN 32.9 pg (28.0-32.0); MEAN CORPUSCULAR HGB CONC 34.9 g/dL (32.0-36.0); MEAN CORPUSCULAR VOLUME 94.3 fL (83.0-99.0); MONOCYTES ABSOLUTE AUTO 0.55 K/uL (0.00-0.80); MONOCYTES PERCENT AUTO 9.1 % (0.0-8.0); NEUTROPHILS ABSOLUTE AUTO 3.06 K/uL (1.80-7.70); NEUTROPHILS PERCENT AUTO 50.3 % (41.0-71.0); PLATELET COUNT,PLT 95 K/uL (150-400); RED BLOOD CELL COUNT 4.87 M/uL (4.52-5.90); WHITE BLOOD CELL COUNT,WBC 6.07 K/uL (3.9-11.3)
[2023-07-15] MEDS: Norepinephrine Bit/D5W Premix 250 ML IV SCH (20:33)
[2023-07-15 20:55] LABS: CORONAVIRUS COVID-19 NAA NEGATIVE (NEGATIVE); INFLUENZA A NAA NEGATIVE (NEGATIVE); INFLUENZA B NAA NEGATIVE (NEGATIVE)
[2023-07-15 20:58] LABS: LACTIC ACID 4.7 mmol/L (0.4-2.0)
[2023-07-15 21:01] LABS: A/G RATIO 1.1 (0.9-1.6); ALBUMIN 3.7 g/dL (3.4-5.0); BILIRUBIN TOTAL 1.8 mg/dL (0.2-1.0); CALCIUM 8.8 mg/dL (8.5-10.1); CARBON DIOXIDE,CO2 23.8 mmol/L (21.0-32.0); CREATININE 1.5 mg/dL (0.8-1.3); EST CRCL DRUG DOSING (CG) 63.93 mL/min; POTASSIUM,K 4.5 mmol/L (3.5-5.1); PROTEIN TOTAL,TP 7.2 g/dL (6.4-8.2)
[2023-07-15 21:28] LABS: APPEARANCE,URINE CLEAR; COLOR,URINE YELLOW; GLUCOSE,URINE NEGATIVE (NEGATIVE); KETONES,URINE 15 mg/dL (NEGATIVE); LEUKOCYTE ESTERASE,URINE NEGATIVE (NEGATIVE); NITRITE,URINE NEGATIVE (NEGATIVE); OCCULT BLOOD,URINE SMALL (NEGATIVE); PROTEIN,URINE 30 mg/dL (NEGATIVE)
[2023-07-15 21:36] LABS: AMPHETAMINES SCREEN, URINE NEGATIVE (CUTOFF=500); BARBITURATE SCREEN,URINE NEGATIVE (CUTOFF=200); BENZODIAZEPINES SCREEN,URINE PRESUMPTIVE POSITIVE (CUTOFF=150); BUPRENORPHINE SCREEN,URINE NEGATIVE (CUTOFF=10); METHADONE SCREEN, URINE NEGATIVE (CUTOFF=200); METHAMPHETAMINES SCREEN, URINE NEGATIVE (CUTOFF=500); OXYCODONE SCREEN,URINE NEGATIVE (CUT0FF=100); PCP SCREEN,URINE NEGATIVE (CUTOFF=25); THC SCREEN,URINE 20 NG/ML NEGATIVE (CUTOFF=50)
[2023-07-15 21:42] LABS: BILIRUBIN,URINE SMALL (NEGATIVE)
[2023-07-15 21:43] LABS: BACTERIA,URINE FEW (NEGATIVE); EPITHELIAL CELLS,URINE RARE (NONE-FEW)
[2023-07-15 21:53] LABS: INR 1.12 (0.86-1.11)
[2023-07-15 22:34] LABS: BASOPHILS ABSOLUTE AUTO 0.04 K/uL (0.00-0.20); BASOPHILS PERCENT AUTO 0.6 % (0.0-1.0); EOSINOPHILS ABSOLUTE AUTO 0.12 K/uL (0.00-0.45); EOSINOPHILS PERCENT AUTO 1.8 % (0.0-6.0); HEMATOCRIT 42.5 % (42.0-52.0); HEMOGLOBIN 14.6 g/dL (14.0-18.0); IMMATURE GRAN ABSOLUTE AUTO 0.01 K/uL (0.00-0.05); IMMATURE GRAN PERCENT AUTO 0.1 % (0.0-0.4); LYMPHOCYTES ABSOLUTE AUTO 1.88 K/uL (1.00-4.80); LYMPHOCYTES PERCENT AUTO 27.9 % (24.0-44.0); MEAN CORPUSCULAR HGB CONC 34.4 g/dL (32.0-36.0); MEAN CORPUSCULAR VOLUME 96.2 fL (83.0-99.0); MONOCYTES PERCENT AUTO 10.4 % (0.0-8.0); NEUTROPHILS ABSOLUTE AUTO 3.99 K/uL (1.80-7.70); NEUTROPHILS PERCENT AUTO 59.2 % (41.0-71.0); PLATELET COUNT,PLT 94 K/uL (150-400); RED BLOOD CELL COUNT 4.42 M/uL (4.52-5.90); WHITE BLOOD CELL COUNT,WBC 6.74 K/uL (3.9-11.3)
[2023-07-15] MEDS: Pantoprazole 80 MG in Sodium Chloride 0.9% 10 ML IVPUSH ONE (22:34)
[2023-07-15] MEDS: Iopamidol 755 MG/ML 500 ML Multipack Bottle IVPUSH STA (23:24)
[2023-07-16] MEDS: Thiamine 200 MG/2 ML MDV IVPUSH SCH (02:52)
[2023-07-16] MEDS: Sodium Chloride 0.9% 1,000 ML IV ONE ×2 (02:53→09:31)
[2023-07-16] MEDS: Folic Acid 1 MG/0.2 ML UD Syringe IV SCH (02:58)
[2023-07-16] MEDS: Ondansetron 4 MG/2 ML SDV IVPUSH PRN (03:03)
[2023-07-16] MEDS: PHENobarbital Sodium 130 MG/ML SDV IVPUSH PRN (03:08)
[2023-07-16] MEDS: Sodium Chloride 0.9% 1,000 ML IV SCH (04:01)
[2023-07-16] MEDS: Morphine 2 MG/ML SYRINGE IVPUSH PRN (05:35)
[2023-07-16 05:46] LABS: BASOPHILS ABSOLUTE AUTO 0.04 K/uL (0.00-0.20); BASOPHILS PERCENT AUTO 0.6 % (0.0-1.0); EOSINOPHILS ABSOLUTE AUTO 0.12 K/uL (0.00-0.45); EOSINOPHILS PERCENT AUTO 1.8 % (0.0-6.0); HEMOGLOBIN 14.4 g/dL (14.0-18.0); IMMATURE GRAN ABSOLUTE AUTO 0.01 K/uL (0.00-0.05); IMMATURE GRAN PERCENT AUTO 0.1 % (0.0-0.4); LYMPHOCYTES ABSOLUTE AUTO 1.46 K/uL (1.00-4.80); LYMPHOCYTES PERCENT AUTO 21.8 % (24.0-44.0); MEAN CORPUSCULAR HEMOGLOBIN 32.7 pg (28.0-32.0); MEAN CORPUSCULAR HGB CONC 34.3 g/dL (32.0-36.0); MEAN CORPUSCULAR VOLUME 95.2 fL (83.0-99.0); MEAN PLATELET VOLUME 10.4 fL (9.4-12.4); MONOCYTES ABSOLUTE AUTO 0.74 K/uL (0.00-0.80); MONOCYTES PERCENT AUTO 11.1 % (0.0-8.0); NEUTROPHILS ABSOLUTE AUTO 4.32 K/uL (1.80-7.70); NEUTROPHILS PERCENT AUTO 64.6 % (41.0-71.0); PLATELET COUNT,PLT 74 K/uL (150-400); RED BLOOD CELL COUNT 4.41 M/uL (4.52-5.90); WHITE BLOOD CELL COUNT,WBC 6.69 K/uL (3.9-11.3)
[2023-07-16] MEDS: cefTRIAXone 1 GM in Sodium Chloride 0.9% 50 ML IV SCH (06:11)
[2023-07-16 06:12] LABS: CARBON DIOXIDE,CO2 23.8 mmol/L (21.0-32.0); CREATININE 1.5 mg/dL (0.8-1.3); EST CRCL DRUG DOSING (CG) 63.93 mL/min; MAGNESIUM 1.5 mg/dL (1.8-2.4); PHOSPHORUS 2.8 mg/dL (2.6-4.7); POTASSIUM,K 4.7 mmol/L (3.5-5.1)
[2023-07-16] MEDS ORDERED: PHENobarbitaL sodium 260 MG in Sodium Chloride 0.9% 100 ML IV PRN (07:06)
[2023-07-16] MEDS ORDERED: PHENobarbital 32.4 MG Tab PO PRN (07:09)
[2023-07-16] MEDS ORDERED: PHENobarbital Sodium 130 MG/ML SDV IVPUSH PRN (07:11)
[2023-07-16] MEDS: Pantoprazole 40 MG in Sodium Chloride 0.9% 10 ML IVPUSH SCH ×2 (08:24→21:01)
[2023-07-16] MEDS: PHENobarbital 32.4 MG Tab PO PRN ×2 (08:25→12:16)
[2023-07-16] MEDS: Magnesium Sulfate/Water 2 GM in Premix Bag 1 BAG IV ONE (08:25)
[2023-07-16] MEDS: FLUoxetine 20 MG Cap PO SCH (08:25)
[2023-07-16] MEDS ORDERED: Albuterol/Ipratropium 3.0-0.5 MG/3 ML Neb Soln NEB PRN (08:51)
[2023-07-16] MEDS ORDERED: Acetaminophen 650 MG Supp RECTAL PRN (08:51)
[2023-07-16] MEDS ORDERED: Polyethylene Glycol 3350 Powder 17 GM Packet PO PRN (08:51)
[2023-07-16] MEDS: Formoterol/Mometasone 200-5 MCG 8.8 GM Inhaler INH SCH (09:34)
[2023-07-16] MEDS: Sucralfate Suspension 1 GM/10 ML Cup PO SCH (09:37)
[2023-07-16] MEDS ORDERED: Thiamine 100 MG in Sodium Chloride 0.9% 100 ML IV SCH (17:00)
[2023-07-16] MEDS ORDERED: Folic Acid 1 MG/0.2 ML UD Syringe IV SCH (17:00)
[2023-07-17 06:52] LABS: HEMATOCRIT 38.1 % (42.0-52.0); HEMOGLOBIN 13.3 g/dL (14.0-18.0); MEAN CORPUSCULAR HEMOGLOBIN 33.5 pg (28.0-32.0); MEAN CORPUSCULAR HGB CONC 34.9 g/dL (32.0-36.0); RED BLOOD CELL COUNT 3.97 M/uL (4.52-5.90)
[2023-07-17 07:32] LABS: A/G RATIO 0.9 (0.9-1.6); ALBUMIN 2.9 g/dL (3.4-5.0); BILIRUBIN TOTAL 1.1 mg/dL (0.2-1.0); CALCIUM 8.4 mg/dL (8.5-10.1); CARBON DIOXIDE,CO2 34.3 mmol/L (21.0-32.0); CREATININE 0.9 mg/dL (0.8-1.3); EST CRCL DRUG DOSING (CG) 106.56 mL/min; MAGNESIUM 1.1 mg/dL (1.8-2.4); PHOSPHORUS 1.9 mg/dL (2.6-4.7); PROTEIN TOTAL,TP 6.1 g/dL (6.4-8.2)
[2023-07-17 08:06] LABS: PLATELET COUNT,PLT 28 K/uL (150-400)
[2023-07-17] MEDS: Magnesium Sulfate/Water 2 GM in Premix Bag 1 BAG IV ONE (08:47)
[2023-07-17] MEDS: Phosphorus #1 250 MG Tab PO SCH (11:12)
[2023-07-17 12:37] LABS: BASOPHILS ABSOLUTE AUTO 0.02 K/uL (0.00-0.20); BASOPHILS PERCENT AUTO 0.7 % (0.0-1.0); EOSINOPHILS ABSOLUTE AUTO 0.12 K/uL (0.00-0.45); EOSINOPHILS PERCENT AUTO 4.3 % (0.0-6.0); HEMATOCRIT 39.7 % (42.0-52.0); HEMOGLOBIN 13.7 g/dL (14.0-18.0); LYMPHOCYTES ABSOLUTE AUTO 0.62 K/uL (1.00-4.80); LYMPHOCYTES PERCENT AUTO 22.1 % (24.0-44.0); MEAN CORPUSCULAR HGB CONC 34.5 g/dL (32.0-36.0); MEAN CORPUSCULAR VOLUME 95.7 fL (83.0-99.0); MEAN PLATELET VOLUME 10.3 fL (9.4-12.4); MONOCYTES ABSOLUTE AUTO 0.34 K/uL (0.00-0.80); MONOCYTES PERCENT AUTO 12.1 % (0.0-8.0); NEUTROPHILS ABSOLUTE AUTO 1.71 K/uL (1.80-7.70); NEUTROPHILS PERCENT AUTO 60.8 % (41.0-71.0); PLATELET COUNT,PLT 28 K/uL (150-400); RED BLOOD CELL COUNT 4.15 M/uL (4.52-5.90); WHITE BLOOD CELL COUNT,WBC 2.81 K/uL (3.9-11.3)
[2023-07-17] MEDS: Diazepam 5 MG Tab PO SCH (21:11)
[2023-07-18 06:24] LABS: HEMATOCRIT 36.8 % (42.0-52.0); HEMOGLOBIN 12.8 g/dL (14.0-18.0); MEAN CORPUSCULAR HEMOGLOBIN 33.1 pg (28.0-32.0); MEAN CORPUSCULAR HGB CONC 34.8 g/dL (32.0-36.0); MEAN CORPUSCULAR VOLUME 95.1 fL (83.0-99.0); MEAN PLATELET VOLUME 10.8 fL (9.4-12.4); PLATELET COUNT,PLT 26 K/uL (150-400); RED BLOOD CELL COUNT 3.87 M/uL (4.52-5.90); WHITE BLOOD CELL COUNT,WBC 2.79 K/uL (3.9-11.3)
[2023-07-18 06:51] LABS: A/G RATIO 0.9 (0.9-1.6); CALCIUM 9.1 mg/dL (8.5-10.1); CARBON DIOXIDE,CO2 34.2 mmol/L (21.0-32.0); CREATININE 0.9 mg/dL (0.8-1.3); EST CRCL DRUG DOSING (CG) 106.56 mL/min; MAGNESIUM 1.2 mg/dL (1.8-2.4); PHOSPHORUS 2.2 mg/dL (2.6-4.7); POTASSIUM,K 3.6 mmol/L (3.5-5.1); PROTEIN TOTAL,TP 6.3 g/dL (6.4-8.2)
[2023-07-18] MEDS ORDERED: Magnesium Sulfate/Water 2 GM/50 ML Premix Bag IV ONE (08:14)
[2023-07-18] MEDS: Magnesium Sulfate/Water 2 GM in Premix Bag 1 BAG IV ONE (10:16)
[2023-07-18] MEDS: Phosphorus #1 250 MG Tab PO SCH (12:23)
[2023-07-18] MEDS: Acetaminophen 325 MG Tab PO PRN (15:38)
[2023-07-19 06:30] LABS: BASOPHILS ABSOLUTE AUTO 0.02 K/uL (0.00-0.20); BASOPHILS PERCENT AUTO 0.7 % (0.0-1.0); EOSINOPHILS ABSOLUTE AUTO 0.13 K/uL (0.00-0.45); EOSINOPHILS PERCENT AUTO 4.8 % (0.0-6.0); HEMATOCRIT 37.1 % (42.0-52.0); HEMOGLOBIN 12.6 g/dL (14.0-18.0); IMMATURE GRAN ABSOLUTE AUTO 0.02 K/uL (0.00-0.05); IMMATURE GRAN PERCENT AUTO 0.7 % (0.0-0.4); LYMPHOCYTES ABSOLUTE AUTO 0.93 K/uL (1.00-4.80); LYMPHOCYTES PERCENT AUTO 34.4 % (24.0-44.0); MEAN CORPUSCULAR VOLUME 97.1 fL (83.0-99.0); MEAN PLATELET VOLUME 10.8 fL (9.4-12.4); MONOCYTES ABSOLUTE AUTO 0.26 K/uL (0.00-0.80); MONOCYTES PERCENT AUTO 9.6 % (0.0-8.0); NEUTROPHILS ABSOLUTE AUTO 1.34 K/uL (1.80-7.70); NEUTROPHILS PERCENT AUTO 49.8 % (41.0-71.0); PLATELET COUNT,PLT 33 K/uL (150-400); RED BLOOD CELL COUNT 3.82 M/uL (4.52-5.90)
[2023-07-19 06:54] LABS: CARBON DIOXIDE,CO2 35.6 mmol/L (21.0-32.0); EST CRCL DRUG DOSING (CG) 95.9 mL/min; MAGNESIUM 1.2 mg/dL (1.8-2.4); PHOSPHORUS 2.3 mg/dL (2.6-4.7); POTASSIUM,K 3.5 mmol/L (3.5-5.1)
[2023-07-19] MEDS ORDERED: Magnesium Sulfate/Water 2 GM/50 ML Premix Bag IV ONE (11:06)
[2023-07-19] MEDS: Magnesium Sulfate/Water 2 GM in Premix Bag 1 BAG IV ONE (11:57)
[2023-07-19 16:04] VITALS: BP 135/79; PULSE 97
== END 2023-07-19 16:30 | disposition home or self-care (01) | DRG 897 ==
LOC: MW.ED 19:04 → MW.ICU 07-16 00:26 → UNDOADMIN 07-16 00:26 → MW.ICU 07-16 01:39 → UNDODISIN 07-17 13:45 → MW.MS 07-17 18:44
PROVIDERS: ADMIT Family Medicine; ATTEND Family Medicine
DX: F10.239 Alcohol dependence with withdrawal, unspecified (principal); E87.20 Acidosis, unspecified; N17.9 Acute kidney failure, unspecified; F10.229 Alcohol dependence with intoxication, unspecified; J44.9 Chronic obstructive pulmonary disease, unspecified; I95.9 Hypotension, unspecified; I10 Essential (primary) hypertension; E66.9 Obesity, unspecified; F41.9 Anxiety disorder, unspecified; E86.0 Dehydration; F32.A Depression, unspecified; Z88.1 Allergy status to other antibiotic agents; Z86.16 Personal history of COVID-19; Z91.148 Patient's other noncompliance with medication regimen for other reason; Z68.33 Body mass index [BMI] 33.0-33.9, adult; Z79.899 Other long term (current) drug therapy
CPT/HCPCS: 0240U; 36415; 70450; 70450-26; 71045; 71045-26; 71260; 71260-26; 74177; 74177-26; 80048; 80053; 80305-QW; 80307; 81001; 82140; 83605; 83735; 84100; 85025; 85027; 85610; 93005; 93010; 96365; 96366; 96375; 99222; 99231; 99232; 99238; 99285-25; 99291; A9270-GY; C9113; J0696; J2270; J2405; J2560; J3360; J3411; J3475; J3490; J7030; Q9967

== ENCOUNTER 2024-01-04 07:11 | Emergency (ER) | payer SELFPAY ==
[2024-01-04 08:00] LABS: BASE EXCESS VENOUS 1.3 (-2.0-3.0); PH,VENOUS 7.39 (7.31-7.41)
[2024-01-04] MEDS: methylPREDNISolone Sodium Succinate 125 MG/2 ML SDV IVPUSH ONE (08:03)
[2024-01-04] MEDS: Sodium Chloride 0.9% 10 ML Syringe FLUSH PRN (08:03)
[2024-01-04] MEDS: Albuterol/Ipratropium 3.0-0.5 MG/3 ML Neb Soln NEB ONE (08:03)
[2024-01-04 08:04] LABS: CORONAVIRUS COVID-19 NAA NEGATIVE (NEGATIVE); INFLUENZA A NAA NEGATIVE (NEGATIVE); INFLUENZA B NAA NEGATIVE (NEGATIVE); RESPIRATORY SYNCYTIAL VIR NAA NEGATIVE (NEGATIVE)
[2024-01-04 08:04] LABS: BASOPHILS ABSOLUTE AUTO 0.14 K/uL (0.00-0.20); BASOPHILS PERCENT AUTO 1.3 % (0.0-1.0); EOSINOPHILS ABSOLUTE AUTO 0.32 K/uL (0.00-0.45); EOSINOPHILS PERCENT AUTO 2.9 % (0.0-6.0); HEMATOCRIT 49.8 % (42.0-52.0); HEMOGLOBIN 17.3 g/dL (14.0-18.0); IMMATURE GRAN PERCENT AUTO 0.9 % (0.0-0.4); LYMPHOCYTES PERCENT AUTO 29.3 % (24.0-44.0); MEAN CORPUSCULAR HGB CONC 34.7 g/dL (32.0-36.0); MEAN CORPUSCULAR VOLUME 89.2 fL (83.0-99.0); MEAN PLATELET VOLUME 9.7 fL (9.4-12.4); MONOCYTES ABSOLUTE AUTO 0.54 K/uL (0.00-0.80); MONOCYTES PERCENT AUTO 4.9 % (0.0-8.0); NEUTROPHILS ABSOLUTE AUTO 6.63 K/uL (1.80-7.70); NEUTROPHILS PERCENT AUTO 60.7 % (41.0-71.0); PLATELET COUNT,PLT 242 K/uL (150-400); RED BLOOD CELL COUNT 5.58 M/uL (4.52-5.90); WHITE BLOOD CELL COUNT,WBC 10.93 K/uL (3.9-11.3)
[2024-01-04 08:18] LABS: INR 1.14 (0.86-1.11)
[2024-01-04 08:29] LABS: A/G RATIO 1.1 (0.9-1.6); ALBUMIN 3.9 g/dL (3.4-5.0); BILIRUBIN TOTAL 0.7 mg/dL (0.2-1.0); CALCIUM 9.2 mg/dL (8.5-10.1); CARBON DIOXIDE,CO2 26.7 mmol/L (21.0-32.0); CREATININE 0.9 mg/dL (0.8-1.3); EST CRCL DRUG DOSING (CG) 105.29 mL/min; MAGNESIUM 1.5 mg/dL (1.8-2.4); POTASSIUM,K 4.3 mmol/L (3.5-5.1); PROTEIN TOTAL,TP 7.5 g/dL (6.4-8.2)
[2024-01-04] MEDS: Magnesium Sulfate/Water Premix 2 GM in Premix Bag 1 BAG IV ONE (08:48)
[2024-01-04] MEDS ORDERED: methylPREDNISolone Sodium Succinate 125 MG/2 ML SDV IVPUSH ONE (08:50)
[2024-01-04 09:21] VITALS: BP 136/67; PULSE 105
== END 2024-01-04 09:27 | disposition home or self-care (01) ==
LOC: MW.ED 07:11
DX: R06.02 Shortness of breath (principal); R06.2 Wheezing; J44.1 Chronic obstructive pulmonary disease with (acute) exacerbation; F10.10 Alcohol abuse, uncomplicated; Y90.6 Blood alcohol level of 120-199 mg/100 ml; I10 Essential (primary) hypertension; E66.9 Obesity, unspecified; Z86.16 Personal history of COVID-19; Z79.899 Other long term (current) drug therapy; Z88.1 Allergy status to other antibiotic agents
CPT/HCPCS: 0241U; 36415; 71045; 80053; 80307; 82803; 83690; 83735; 83880; 84484; 85025; 85610; 93005; 96365; 96375; 99285; J2919; J3475; J3490; J7620-GY